=== PATIENT | female | born 1990 | race African-American/Black ===

== ENCOUNTER 2019-11-05 11:28 | Outpatient (CLI) | payer OTHER, SELFPAY ==
--- NOTE | ~2019-11-05 | MMUS_ITS ---
EXAMINATION: MM diagnostic hussein BI w libby, US breast RT limited HISTORY: Palpable right breast mass TECHNIQUE: Additional 3-D tomosynthesis images of were performed and synthetic 2-D images were genera paris. CAD analysis was submitted and interpreted. High resolution right breast ultrasound was performe d. COMPARISON: None FINDINGS: MAMMOGRAPHIC FINDINGS: The breasts are heterogenously dense, which may obscure small masses. There is a 1.4 cm spiculated ma ss in the upper inner quadrant of the right breast. There is a benign bright radiolucent nodule in th e lower inner quadrant of the left breast, most likely benign intramammary lymph node. There are no s uspicious calcifications, masses or architectural distortion in the left breast to suggest malignancy . ULTRASOUND: Left breast ultrasound: At 2:00, 6 cm from the nipple there is an irregular shaped hypoechoic mass with angular margins, mixe d posterior attenuation measuring 1.5 x 1.2 x 1.2 cm. No significant internal vascularity. IMPRESSION: 1. Irregular shaped hypoechoic mass of the right breast at 2:00, 6 cm from the nipple, corresponding to the mammographic finding. 2. Ultrasound-guided right breast biopsy recommended. BI-RADS category 5, highly suggestive of malignancy. Reviewed, dictated and finalized at location A. IMPRESSION: 1. Irregular shaped hypoechoic mass of the right breast at 2:00, 6 cm from the nipple, corresponding to the mammographic finding. 2. Ultrasound-guided right breast biopsy recommended. BI-RADS category 5, highly suggestive of malignancy.
== END 2019-11-05 11:29 | disposition home or self-care (01) ==
PROVIDERS: PCP Family Medicine; Visit Provider Obstetrics & Gynecology
DX: N63.12 Unspecified lump in the right breast, upper inner quadrant (principal)
CPT/HCPCS: 76642; 77062; 77066; G0279

== ENCOUNTER 2021-02-01 09:53 | Emergency (ER) | payer OTHER, SELFPAY ==
--- NOTE | ~2021-02-01 | US_ITS ---
EXAMINATION: US OB <= 14 weeks fetus DATE: 02/01/2021 12:35 INDICATION: Pelvic pain, cramping and bleeding with clots during first trimester . TECHNIQUE: Real-time pelvic ultrasound utilizing both a transvaginal and transabdominal probe was pe rformed. The interpreting radiologist was not present for the study. COMPARISON: None. FINDINGS: The uterus measures 4.6 x 5.9 x 6.4 cm. Multiple uterine fibroids, the largest measuring 7.8 cm in ma ximal diameter. There are couple smaller pedunculated fibroids with curvilinear hyperechoic and shado wing peripheral calcification which measure 5.6 cm, 3.4 cm and 3.6 cm in maximal diameters. The endom etrial complex measures 10 mm in thickness.No endometrial fluid or gestational sac identified. The ov nichelle are not visualized. IMPRESSION: 1. No intrauterine gestational sac which could be due to early, failed or ectopic . Recommen d correlation with serial beta-hCG levels with follow-up ultrasound as clinically indicated. 2. Fibroid uterus including a few pedunculated fibroids which partially obscure the adnexal regions w ith bilateral ovaries not visualized.. Reviewed, dictated and finalized at location A. IMPRESSION: 1. No intrauterine gestational sac which could be due to early, failed or ectop ic . Recommend correlation with serial beta-hCG levels with follow-up ultrasound as clinically indicated. 2. Fibroid uterus including a few pedunculated fibroids which partially obscure the adnexal regions with bilateral ovaries not visualized..
[2021-02-01 10:09] VITALS: BP 123/94; PULSE 90; RESP 18; TEMP 36.3; O2SAT 99
[2021-02-01 11:59] VITALS: BP 118/73; PULSE 80
[2021-02-01 12:00] VITALS: BP 126/84; PULSE 91
[2021-02-01 12:02] VITALS: BP 113/77; PULSE 95
--- NOTE | 2021-02-01 12:39 | ED.FALL ---
HPI - Fall General Chief Complaint: Vaginal Bleeding Stated Complaint: Vag bleed Time Seen by Provider: 02/01/21 10:55 Source: patient and RN notes reviewed Mode of arrival: ambulatory Limitations: no limitations History of Present Illness HPI Narrative: Patient a 30-year-old female who presents to emergency department for evaluation of having continued vaginal bleeding and passing tissue this morning and clots patient began having bleeding over the last several days was seen at an outside hospital had an ultrasound performed and blood work was discharged home she was traveling back arrived last night and then this morning had the increasing bleeding in tissue patient is followed by Dr. Olvera. Patient notes minimal cramping and notes that the bleeding has began to subside she is and denies any other complaints did take Tylenol this morning for pain Related Data Home Medications Medication Instructions Recorded Confirmed No Home Medications 12/30/20 12/30/20 Allergies Allergy/AdvReac Type Severity Reaction Status Date / Time strawberry AdvReac Intermediate Hives Verified 02/01/21 10:15 Review of Systems Review of Systems: All systems reviewed & are unremarkable except as noted in HPI and below PMFSH Past Medical History Medical History Adult BMI 34.0-34.9 kg/sq m Cancer of left hand bones delivery delivered Surgical History Surgical History History of lumpectomy Family History Family History Father No problems noted. Mother No problems noted. Sibling No problems noted. 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 HEAD: Normocephalic, atraumatic. EYES: PERRLA and EOMI. ENT: Nares clear, no rhinorrhea or epistaxis. Mucous membranes moist. CHEST: Clear to auscultation. No respiratory distress. No wheezes rales or rhonchi HEART: Regular rate and rhythm. No murmur heard. Normal peripheral pulses. ABDOMEN: Soft, nontender, nondistended EXTREMITIES: Normal range of motion. No edema. SKIN: Warm, dry, no rash. NEURO: No focal deficits. Alert and oriented x3. Cranial nerves II through XII grossly intact PSYCH: Normal mood and affect. Course Course Emergency Course: Patient in the room at this time aware of case findings treatment plan diagnosis discussion with mercantile reporter will follow up accordingly hemodynamically stable given bleeding precautions and felt appropriate for outpatient reevaluation Consultations Consultation #1: Discussed case with Dr. Olvera who will follow the patient on Tuesday for repeat beta quant testing Date: 02/01/21 Time: 13:11 Vital Signs Vital signs: Vital Signs Temperature 97.3 F L 02/01/21 10:09 Pulse Rate 90 02/01/21 10:09 Respiratory Rate 18 02/01/21 10:09 Blood Pressure 123/94 H 02/01/21 10:09 Pulse Oximetry 99 02/01/21 10:09 Temperature 97.3 F L 02/01/21 10:09 Pulse Rate 95 02/01/21 12:02 Respiratory Rate 18 02/01/21 10:09 Blood Pressure 113/77 02/01/21 12:02 Pulse Oximetry 99 02/01/21 10:09 MDM - Fall Lab Data Result diagrams: 02/01/21 12:40 Labs: Lab Results 02/01/21 02/01/21 Range/Units 12:40 12:40 WBC 13.3 H (4.5-10.0) K/mm3 RBC 4.52 (4.2-5.4) M/mm3 Hgb 12.3 (12.0-15.0) g/dL Hct 37.3 (37.0-47.0) % MCV 82.5 (80-100) fl MCH 27.2 (26-34) pg MCHC 33.0 (32-36) g/dl RDW 12.8 (1
[2021-02-01 12:49] LABS: Basophils Percent Auto 0.3 % (0.2-1.2); Eosinophils Absolute Auto 0.2 K/mm3 (0-0.3); Eosinophils Percent Auto 1.1 % (0-4.4); Hematocrit 37.3 % (37.0-47.0); Hemoglobin 12.3 g/dL (12.0-15.0); Immature Granulocyte Absolute 0.03 K/mm3 (0.00-0.031); Immature Granulocyte Percent A 0.2 % (0-0.5); Lymphocytes Absolute Auto 2.21 K/mm3 (0.9-3.2); Lymphocytes Percent Auto 16.6 % (18.3-44.2); Mean Corpuscular Hemoglobin 27.2 pg (26-34); Mean Corpuscular Volume 82.5 fl (80-100); Mean Platelet Volume 9.5 fl (7.4-10.4); Monocytes Absolute Auto 0.9 K/mm3 (0.1-0.6); Monocytes Percent Auto 6.8 % (2.6-8.5); Platelet Count Result 279 k/mm3 (150-375); Red Blood Count 4.52 M/mm3 (4.2-5.4); Red Cell Distribution Width 12.8 % (11.5-14.5); White Blood Count 13.3 K/mm3 (4.5-10.0)
[2021-02-01 13:48] VITALS: BP 123/70; PULSE 86; RESP 16; O2SAT 100
== END 2021-02-01 13:51 | disposition home or self-care (01) ==
PROVIDERS: Emergency Provider Emergency Medicine; PCP Family Medicine
DX: O03.9 Complete or unspecified spontaneous abortion without complication (principal); Z85.830 Personal history of malignant neoplasm of bone; Z77.22 Contact with and (suspected) exposure to environmental tobacco smoke (acute) (chronic); D25.9 Leiomyoma of uterus, unspecified
CPT/HCPCS: 36415; 76801; 84702; 85025; 99284

== ENCOUNTER 2021-07-13 13:04 | Emergency (ER) | payer OTHER, SELFPAY ==
[2021-07-13 13:12] VITALS: BP 127/75; PULSE 113; RESP 16; TEMP 36.8; O2SAT 100
--- NOTE | 2021-07-13 13:37 | ED.URI ---
HPI - URI/Sore Throat General Chief Complaint: Upper Respiratory Infection Stated Complaint: congestion/sob Time Seen by Provider: 07/13/21 13:41 Source: patient Mode of arrival: ambulatory Limitations: no limitations History of Present Illness HPI Narrative: 30-year-old female presenting for complaint of shortness of breath with exertion for 1 day. Worse with walking up stairs. She states her school nurse listened to her lungs and told her she had pulse ox of 86% and recommended she get a chest x-ray, however she states she also found out she was about a week ago. She currently denies shortness of breath, cough, sinus congestion, dizziness, fatigue, body aches, nausea, vomiting, diarrhea, fever or chills. Endorses sick contacts, son/ taking abx. Vacc covid Related Data Home Medications Medication Instructions Recorded Confirmed No Home Medications 12/30/20 12/30/20 Allergies Allergy/AdvReac Type Severity Reaction Status Date / Time strawberry AdvReac Intermediate Hives Verified 02/01/21 10:15 Review of Systems Review of Systems: CONSTITUTIONAL: Denies body aches, fever, chills, or sweats. EYES: Denies visual changes, redness, or discharge. ENT: Denies rhinorrhea, congestion, sore throat, or otalgia. CARDIOVASCULAR: Denies chest pain, palpitations, or edema. RESPIRATORY: Endorses shortness of breath with exertion. Denies cough GASTROINTESTINAL: Denies abdominal pain, nausea, vomiting, or diarrhea. GENITOURINARY: Denies dysuria or hematuria. SKIN: Denies rash, itching, or wounds. MUSCULOSKELETAL: Denies back pain, joint pain, or myalgia. NEUROLOGIC: Denies headache, numbness, tingling, or weakness. PSYCH: Denies depression or anxiety. [facility] Past Medical History Medical History Adult BMI 34.0-34.9 kg/sq m Cancer of left hand bones delivery delivered Surgical History Surgical History History of lumpectomy Family History Family History Father No problems noted. Mother No problems noted. Sibling No problems noted. 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 Please see nursing chart for further information. There is no relevant family history pertinent to the presenting complaint Exam Narrative: GENERAL: Well-appearing, well-nourished, and in no acute distress. HEAD: Normocephalic, atraumatic. EYES: EOMI. No redness or drainage. Conjunctivae normal. ENT: Mucous membranes pink and moist. No rhinorrhea. NECK: Normal AROM. Supple. CHEST: No respiratory distress. Clear to auscultation. HEART: Regular rate and rhythm. No murmur appreciated. Normal peripheral pulses. ABDOMEN: Soft, nontender, nondistended, normal active bowel sounds. MUSCULOSKELETAL: No bony tenderness. EXTREMITIES: Normal range of motion. No edema. SKIN: Warm, dry, no rash. Capillary refill normal. Normal skin turgor. NEURO: No focal deficits. Alert and oriented x3. Gait steady. PSYCH: Normal affect. No signs of depression or anxiety. Course Course Emergency Course: We discussed risk vs benefit of CXR during Pt will monitor sx and and pulse ox, and call pcp for f/u, she will go to ER for any cp, sob, palpitaitons, syncope. Patient is aware
== END 2021-07-13 14:07 | disposition home or self-care (01) ==
PROVIDERS: Emergency Provider Nurse Practitioner Family; PCP Family Medicine
DX: O90.89 Other complications of the puerperium, not elsewhere classified (principal); R06.00 Dyspnea, unspecified; Z85.830 Personal history of malignant neoplasm of bone
CPT/HCPCS: 99211; G0463

== ENCOUNTER 2021-07-28 15:20 | Outpatient (CLI) | payer OTHER, SELFPAY ==
--- NOTE | ~2021-07-28 | US_ITS ---
US OB <=14 wk fetus w TV DATE: 07/28/2021 16:03 INDICATION: Uncertain dates TECHNIQUE: Real-time imaging and Doppler analysis. Transabdominal and transvaginal approaches COMPARISON: 02/01/2021 obstetrical ultrasound FINDINGS: The uterus measures 12.8 cm height, 8.4 cm anteroposterior and 9.3 cm transverse dimension. Possible uterine fibroids are noted, the largest measuring 6.9 x 7.6 x 5.9 cm. Live aguirre intrauterine gestation. Yolk sac and pole are detected. heart rate of 175 bpm. Ramah-rump length averages 2.16 cm; estimated gestational age is 8 weeks 6 days +/- 6 days, with KAYLEE of 03/03/2022. Right ovary 4.1 x 2.3 x 2.7 cm, with 1.0 x 1.8 cm cyst Left ovary is not well demonstrated. No free pelvic fluid is noted. IMPRESSION: Estimated gestational age of 8 weeks 6 days +/- 6 days; KAYLEE: 03/03/2022 Reviewed, dictated and finalized at Location [facility]. Reviewed, dictated and finalized at location A. E MAKER ZINC IMPRESSION: Estimated gestational age of 8 weeks 6 days +/- 6 days; KAYLEE: 022
== END 2021-07-28 15:21 | disposition home or self-care (01) ==
PROVIDERS: PCP Family Medicine; Visit Provider Obstetrics & Gynecology Gynecology
DX: Z36.87 Encounter for antenatal screening for uncertain dates (principal); Z3A.08 8 weeks gestation of pregnancy
CPT/HCPCS: 76801; 76817

== ENCOUNTER 2021-10-07 16:21 | Outpatient (CLI) | payer OTHER, SELFPAY ==
--- NOTE | ~2021-10-07 | US_ITS ---
EXAMINATION: US OB /maternal detail DATE: 10/07/2021 17:08 INDICATION: anatomic survey. TECHNIQUE: Real-time ultrasound of the pelvis was performed. COMPARISON: Ultrasound 07/28/2021 FINDINGS: There are 7.7 cm, 3.8 cm, and 5.2 cm uterine fibroids. There is a single living fetus in vertex prese ntation. The placenta is posterior. heart rate is 151 beats per minute (bpm). The amniotic flu id volume is subjectively normal. The following biometric data were obtained: Biparietal diameter (BPD): 4.4 cm; head circumference (HC): 16.5 cm; abdominal circumference (AC): 15 .0 cm; femur length (FL): 3.3 cm. These measurements are concordant. Estimated weight is 337 g +/- 51 g, which correlates with the 97th percentile when 03/03/22 is u sed as estimated date of delivery. As single measurements, these parameters are each equal to the following estimated gestational ages: BPD: 19 weeks 2 days. HC: 19 weeks 2 days. AC: 20 weeks 2 days. FL: 20 weeks 3 days. estimated gestational age based solely on measurements from this exam is 19 weeks 6 days +/- 1 weeks 3 days. The cerebral ventricles, cerebellum, cisterna magna, nuchal fold, lip, and visualized portions of the spine are normal. The heart is normal. The diaphragm, stomach, kidneys, and bladder are normal. Ther e are two umbilical arteries to yield a 3-vessel cord. The cord insertion is normal. IMPRESSION: 1. Single living fetus in vertex presentation. 2. Large for gestational age. Estimated weight is 337 g +/- 51 g, which correlates with the 97 th percentile when 03/03/22 is used as estimated date of delivery. This date was set by ultrasound on 07/28/2021. 3. Normal anatomic survey. 4. Uterine fibroids. Reviewed, dictated and finalized at location A. IMPRESSION: 1. Single living fetus in vertex presentation. 2. Large for gestational age. Estimated weight is 337 g +/- 51 g, which correlates with the 97th percentile when 03/03/22 is used as estimated date of d elivery. This date was set by ultrasound on 07/28/2021. 3. Normal anatomic survey. 4. Uterine fibroids.
== END 2021-10-07 16:22 | disposition home or self-care (01) ==
PROVIDERS: PCP Family Medicine; Visit Provider Obstetrics & Gynecology Gynecology
DX: Z36.9 Encounter for antenatal screening, unspecified (principal); Z3A.19 19 weeks gestation of pregnancy
CPT/HCPCS: 76805

== ENCOUNTER 2021-11-04 16:17 | Outpatient (CLI) | payer OTHER, SELFPAY ==
--- NOTE | ~2021-11-04 | US_ITS ---
EXAMINATION: US OB follow up DATE: 11/04/2021 17:18 INDICATION: anatomic survey follow-up, second trimester TECHNIQUE: Real-time ultrasound of the pelvis was performed. The interpreting radiologist was not pre sent for the study. COMPARISON: 10/07/2021 FINDINGS: There is a single living fetus in transverse lie. The placenta is posterior and 4.3 cm from the internal cervical os. cardiac activity and movement are noted. heart rate is 1 42 beats per minute (bpm). The amniotic fluid index is subjectively normal. The spine appears n ormal. There is a 6.0 cm fibroid of the uterine fundus. Two adjacent fibroids are seen in the anterio r uterine body which measure 2.0 x 2.6 cm. There is a 4 cm intramural fibroid of the lower anterior u terus. The following biometric data were obtained: Biparietal diameter (BPD): 5.6 cm; head circumference (HC): 20.7 cm; abdominal circumference (AC): 17 .6 cm; femur length (FL): 4.2 cm. These measurements are concordant. Estimated weight is 550 g +/- 82 g, which correlates with the 40th percentile when 03/03/2022 is used as estimated date of delivery. As single measurements, these parameters are each equal to the following estimated gestational ages w ith ranges of +/- 2 standard deviations: BPD: 23 weeks 0 days +/- 1 weeks 5 days. HC: 22 weeks 6 days +/- 1 weeks 3 days. AC: 22 weeks 4 days +/- 2 weeks 0 days. FL: 23 weeks 4 days +/- 1 weeks 6 days. estimated gestational age based solely on measurements from this exam is 23 weeks 0 days +/- 1 weeks 4 days. IMPRESSION: 1. Single living fetus in transverse lie. 2. Normal-appearing spine. 3. Estimated weight is 550 g +/- 82 g, which correlates with the 40th percentile when 03/03/2022 is used as estimated date of delivery. Reviewed, dictated and finalized at location B. IMPRESSION: 1. Single living fetus in transverse lie. 2. Normal-appearing spine. 3. Estimated weight is 550 g +/- 82 g, which correlates with the 40th per centile when 03/03/2022 is used as estimated date of delivery.
== END 2021-11-04 16:18 | disposition home or self-care (01) ==
PROVIDERS: PCP Family Medicine; Visit Provider Obstetrics & Gynecology Gynecology
DX: Z36.9 Encounter for antenatal screening, unspecified (principal); Z3A.23 23 weeks gestation of pregnancy
CPT/HCPCS: 76816

== ENCOUNTER 2021-12-16 16:29 | Outpatient (CLI) | payer OTHER, SELFPAY ==
--- NOTE | ~2021-12-16 | US_ITS ---
EXAMINATION: US OB follow up DATE: 12/16/2021 17:11 INDICATION: Size greater than dates, fibroids TECHNIQUE: Real-time ultrasound of the pelvis was performed. COMPARISON: 11/04/2021. FINDINGS: There is a single living fetus in vertex presentation, longitudinal lie. The placenta is posterior an d lies within 2 cm of the cervix. heart rate is 151 beats per minute (bpm). cardiac acti vity and movement are noted. The amniotic fluid index is subjectively normal. Multiple uterine fibroids, the largest in the right fundus measuring up to 5.8 cm. 4 cm lower anterior uterine fibroid . 1.9 cm anterior uterine body fibroid. The following biometric data were obtained: Biparietal diameter (BPD): 7.6 cm; head circumference (HC): 25.8 cm; abdominal circumference (AC): 25 .7 cm; femur length (FL): 5.8 cm. Head circumference measures small, with overlapping ranges, possibly related to positioning/measureme nt error. Estimated weight is 1467 g +/- 220.1 g, which correlates with the 69th percentile when 2 is used as estimated date of delivery. As single measurements, these parameters are each equal to the following estimated gestational ages w ith ranges of +/- 2 standard deviations: BPD: 30 weeks 2 days +/- 3 weeks 1 days. HC: 28 weeks 0 days +/- 2 weeks 0 days. AC: 29 weeks 6 days +/- 2 weeks 1 days. FL: 30 weeks 2 days +/- 3 weeks 0 days. estimated gestational age based solely on measurements from this exam is 29 weeks 4 days +/- 2 weeks 1 days. IMPRESSION: 1. Single living fetus in vertex presentation. 2. Estimated weight is 1467 g +/- 220.1 g, which correlates with the 69th percentile when 2021 is used as estimated date of delivery. 3. Multiple stable uterine fibroids. 4. Low-lying placenta. Reviewed, dictated and finalized at location K. IMPRESSION: 1. Single living fetus in vertex presentation. 2. Estimated weight is 1467 g +/- 220.1 g, which correlates with the 69th percentile when 03/03/2022 is used as estimated date of delivery. 3. Multiple stable uterine fibroids. 4. Low-lying placenta.
== END 2021-12-16 16:30 | disposition home or self-care (01) ==
PROVIDERS: PCP Family Medicine; Visit Provider Obstetrics & Gynecology Gynecology
DX: O36.63X0 Maternal care for excessive fetal growth, third trimester, not applicable or unspecified (principal); D25.9 Leiomyoma of uterus, unspecified; O44.40 Low lying placenta NOS or without hemorrhage, unspecified trimester; Z3A.00 Weeks of gestation of pregnancy not specified
CPT/HCPCS: 76816

== ENCOUNTER 2022-01-26 09:43 | Outpatient (CLI) | payer OTHER, SELFPAY ==
--- NOTE | ~2022-01-26 | US_ITS ---
EXAMINATION: US OB follow up DATE: 01/26/2022 10:39 INDICATION: Suspected complication of the placenta during third trimester TECHNIQUE: Real-time ultrasound of the pelvis was performed. The interpreting radiologist was not pre sent for the study. COMPARISON: 12/16/2021 FINDINGS: There is a single living fetus in vertex presentation. The placenta is posterior and 4.2 cm from the internal cervical os. The cervical length is 4.0 cm. cardiac activity and movem ent are noted. heart rate is 143 beats per minute (bpm). The amniotic fluid index is subjective ly normal. Multiple stable appearing calcified uterine fibroids are noted, the largest of which measu res 6 cm. The following biometric data were obtained: Biparietal diameter (BPD): 8.8 cm; head circumference (HC): 31.2 cm; abdominal circumference (AC): 33 .0 cm; femur length (FL): 7.0 cm. These measurements are concordant. Estimated weight is 2913 g +/- 436 g, which correlates with the 86th percentile when 03/03/2022 is used as estimated date of delivery. As single measurements, these parameters are each equal to the following estimated gestational ages w ith ranges of +/- 2 standard deviations: BPD: 35 weeks 4 days +/- 3 weeks 1 days. HC: 35 weeks 0 days +/- 3 weeks 0 days. AC: 37 weeks 0 days +/- 3 weeks 0 days. FL: 36 weeks 1 days +/- 3 weeks 0 days. estimated gestational age based solely on measurements from this exam is 36 weeks 0 days +/- 2 weeks 4 days. IMPRESSION: 1. Single living fetus in vertex presentation. 2. Estimated weight is 2913 g +/- 436 g, which correlates with the 86th percentile when 03/03/20 22 is used as estimated date of delivery. 3. Multiple stable uterine fibroids. 4. Posterior placenta 4.2 cm from the internal cervical os. Reviewed, dictated and finalized at location B. IMPRESSION: 1. Single living fetus in vertex presentation. 2. Estimated weight is 2913 g +/- 436 g, which correlates with the 86th p ercentile when 03/03/2022 is used as estimated date of delivery. 3. Multiple stable uterine fibroids. 4. Posterior placenta 4.2 cm from the internal cervical os.
== END 2022-01-26 09:44 | disposition home or self-care (01) ==
PROVIDERS: PCP Family Medicine; Visit Provider Obstetrics & Gynecology Gynecology
DX: Z03.72 Encounter for suspected placental problem ruled out (principal); Z3A.36 36 weeks gestation of pregnancy
CPT/HCPCS: 76816

== ENCOUNTER 2022-02-20 19:29 | Inpatient (IN) | payer OTHER, SELFPAY ==
--- NOTE | 2022-02-12 15:58 | PC.NURSE ---
Verified with OR schedule and patient--C/S with tubal ligation on 02/25/22 at 0730 Patient given requisition for lab draw on 02/24/22
[2022-02-20] VITALS (32 sets, daily range): BP systolic 90–128; BP diastolic 58–78; PULSE 81–125; RESP 16; TEMP 36.5–36.8; O2SAT 95–100; BMI 35.9
[2022-02-20] MEDS: LACTATED RINGERS 1,000 ML 999 ML IV CONT (19:45)
--- OUTSIDE RECORDS SUMMARY | 2022-02-20 20:12 | XMS_ITS | Referral Summary ---
:1990 Author Organization [facility] Address [facility] [address] [address]- Encounter 01/30/21 - 01/30/21 [facility] [address] [facility] [place] [id number] Encounter Diagnosis Vaginal bleeding (Discharge Diagnosis) - 01/30/21 (Discharge Diagnosis) - 01/30/21 Bacteriuria (Discharge Diagnosis) - 01/30/21 Discharge Disposition: 01-Home or Self Care Attending Physician: Pippa Manning MD Admitting Physician: Pippa Manning MD Vital Signs Most recent to oldest [Reference Range]: 1 Temperature Oral [35.8-37.3 degC] 36.7 degC (01/30/21 11:31 AM) Peripheral Pulse Rate [60-100 bpm] 84 bpm (01/30/21 5:24 PM) Respiratory Rate [14-20 br/min] 20 br/min (01/30/21 5:24 PM) Blood Pressure [90-140/60-90 mmHg] 119/61 mmHg (01/30/21 5:24 PM) SpO2 98 % (01/30/21 5:24 PM) Problem List Condition Effective Dates Status Health Status Informant Breast cancer(Confirmed) Active pat ient Allergies, Adverse Reactions, Alerts No Known Medication Allergies Medications Macrobid 100 mg oral capsule 100 mg 1 caps, Oral, BID, X 7 days, # 14 caps, 0 Refill(s), Pharmacy: [id number], 1 caps Oral BID,x7 days Start Date: 01/30/21 Stop Date: 02/06/21 Status: Ordered Results Most recent to oldest [Reference Range]: 1 WBC [4.0-11.0 K/uL ] 10.3 K/uL (7/30/21 12:32 PM) RBC [3.80-5.20 M/ul ] 4.61 M/ul (01/30/21 12:32 PM) BUN [7-19 mg/dL] 5 mg/dL *LOW* (01/30/21 12:32 PM) UA Color [Yellow] Yellow
--- NOTE | 2022-02-20 20:33 | PM.IMHP ---
H&P: HPI History of Present Illness Date/Time: 02/20/22 20:33 Chief Complaint: Intrauterine at 38 2/7 wks here with spontaneous rupture of membranes. Patient has a planned repeat section and in addition has requested sterilization with tubal ligation. Plan is to proceed with and tubal. The patient is aware of the tubal ligation is a sterilizing permanent procedure. Risk of tubal failure with increased ectopic has been reviewed. has been complicated by fibroids however the has had good growth. labs O positive, rubella nonimmune, RPR negative, hepatitis-B surface antigen negative, HIV negative, group B strep negative. 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 Status post chemo and radiation Surgical History Surgical History (Updated 02/20/22 @ 20:41 by Kena Finn MD) History of History of lumpectomy Family History Family History (Updated 02/12/22 @ 15:38 by Shonda Carlson RN) Father No problems noted. Mother No problems noted. Sibling No problems noted. 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 Gender identity (if verbalized by the patient): Female Spiritual care concerns: No Meds Home Medications and Allergies Home Medications Medication Instructions Recorded Confirmed Type vitamins no.170-iron 1 tablet PO DAILY 07/15/21 08/05/21 History fumarate 27 mg-folic acid 1 mg tablet Allergies Allergy/AdvReac Type Severity Reaction Status Date / Time strawberry AdvReac Intermediate Hives Verified 02/12/22 15:37 Vital Signs Vital Signs - 24 hr 02/20/22 20:32 Pulse Rate 110 H Blood Pressure 127/77 Exam Const: General: healthy appearing and alert Orientation/consciousness: patient oriented x3 GI: GI Palp: Yes Soft to palpation, No Tenderness to palpation present (GI) and Yes Other GI palpation findings present ( gravid with a fundal height of 46cm; multiple fibroids palpable) : External Female Exam: normal external appearance Speculum Exam - Vagina: normal appearance of the vagina and normal vaginal discharge Bimanual Exam- Adnexa, other: normal adnexae and No adnexal tenderness Manual OB Exam: dilated 1 cm, effaced 0% and station high Amniotic Fluid: clear Neuro: General: patient oriented x3 Assessment and Plan Assessment and plan (1) 38 weeks gestation of : Code(s): Z3A.38 - 38 weeks gestation of Status: Acute (2) SROM (spontaneous rupture of membranes): Status: Acute Assessment and Plan: plan to proceed with repeat section (3) Encounter for sterilization: Code(s): Z30.2 - Encounter for sterilization Status: Acute Assessment and Plan: plan to proceed with tubal ligation (4) Fibroids: Code(s): D21.9 - Benign neoplasm of connective and other soft tissue, unspecified Status: Acute (5) History of : Code(s): Z98.891 - History of uterine scar from previous surgery Status: Acute
--- NOTE | 2022-02-20 20:38 | LDADM ---
This patient, Lurdes Corado, was admitted to Labor/Delivery/Recovery 119 on 02/20/22 at 19:29. Plans for labor, pain management and were discussed with patient. Patient/family oriented to hospital policies and general routines including ID bracelet, bed and alarms, visiting hours, pain management, procedures, bathroom and other care routines, personal items, smoking policy, room service/diet and guest tray routines, security routines, and visiting hours. Patient/Family are encouraged to report perceived risks to care and to ask questions if they do not understand what they are told or what they should do. See OBIX for further documentation.
[2022-02-20 20:40] LABS: Basophils Percent Auto 0.3 % (0.2-1.2); Eosinophils Absolute Auto 0.1 K/mm3 (0-0.3); Eosinophils Percent Auto 1.2 % (0-4.4); Hematocrit 34.9 % (37.0-47.0); Hemoglobin 11.5 g/dL (12.0-15.0); Immature Granulocyte Absolute 0.11 K/mm3 (0.00-0.031); Lymphocytes Absolute Auto 2.17 K/mm3 (0.9-3.2); Lymphocytes Percent Auto 19.2 % (18.3-44.2); Mean Corpuscular Hemoglobin 28.6 pg (26-34); Mean Corpuscular Volume 86.8 fl (80-100); Mean Platelet Volume 9.8 fl (7.4-10.4); Neutrophils Absolute Auto 7.8 K/mm3 (1.3-6.7); Neutrophils Percent Auto 69.3 % (45.5-73.1); Platelet Count Result 223 k/mm3 (150-375); Red Blood Count 4.02 M/mm3 (4.2-5.4); Red Cell Distribution Width 14.6 % (11.5-14.5); White Blood Count 11.3 K/mm3 (4.5-10.0)
--- NOTE | 2022-02-20 20:40 | WPDANESEPPF ---
Anes - Initial Pre Proc Eval Procedure: Operation Date: 02/20/22 21:00 Proposed Procedures p Section - Kena Finn MD Operation Date: 02/25/22 07:30 Proposed Procedures p Repeat Section with Bilateral Tubal Ligation - Kena Finn MD Date/Time: 02/20/22 20:40 Surgeon: Kena Finn MD Pre Op Diagnosis: IUP Pre Op Diagnosis: leaking Patient Data Age: 31 Gender: F Height: 1.63 m Weight: 95 kg Last Vital Signs Pulse 110 H 02/20/22 20:32 BP 127/77 02/20/22 20:32 Allergies Allergy/AdvReac Type Severity Reaction Status Date / Time strawberry AdvReac Intermediate Hives Verified 02/12/22 15:37 Home Medications Medication Instructions Recorded Confirmed Type vitamins no.170-iron 1 tablet PO DAILY 07/15/21 08/05/21 History fumarate 27 mg-folic acid 1 mg tablet Laboratory Tests 02/20/22 02/20/22 20:36 20:36 WBC 11.3 K/mm3 H K/mm3 (4.5-10.0) RBC 4.02 M/mm3 L M/mm3 (4.2-5.4) Hgb 11.5 g/dL L g/dL (12.0-15.0) Hct 34.9 % L % (37.0-47.0) MCV 86.8 fl fl (80-100) MCH 28.6 pg pg (26-34) MCHC 33.0 g/dl g/dl (32-36) RDW 14.6 % H % (11.5-14.5) Plt Count 223 k/mm3 k/mm3 (150-375) MPV 9.8 fl fl (7.4-10.4) Immature Gran % (Auto) 1.0 % H % (0-0.5) Neut % (Auto) 69.3 % % (45.5-73.1) Lymph % (Auto) 19.2 % % (18.3-44.2) [place] % (Auto) 9.0 % H % (2.6-8.5) Eos % (Auto) 1.2 % % (0-4.4) Baso % (Auto) 0.3 % % (0.2-1.2) Lymph # (Auto) 2.17 K/mm3 K/mm3 (0.9-3.2) [place] # (Auto) 1.0 K/mm3 H K/mm3 (0.1-0.6) Eos # (Auto) 0.1 K/mm3 K/mm3 (0-0.3) Baso # (Auto) 0.0 K/mm3 K/mm3 (0.0-0.1) Abs Immat Gran (auto) 0.11 K/mm3 H K/mm3 (0.00-0.031) Absolute Neuts (auto) 7.8 K/mm3 H K/mm3 (1.3-6.7) Absolute Nucleated RBC 0.0 K/mm3 K/mm3 (0.0-0.012) Nucleated RBC % 0.0 % % (0.0-0.2) RPR Pending Patient hx anesthesia problems: none Family hx anesthesia problems: none Results Review: All pre-operative results and documents have been reviewed as part of the pre-operative evaluation. 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 Status post chemo and radiation Surgical History Surgical History (Updated 02/20/22 @ 20:41 by Kena Finn MD) History of History of lumpectomy Family History Family History (Updated 02/12/22 @ 15:38 by Shonda Carlson RN) Father No problems noted. Mother No problems noted. Sibling No problems noted. 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 Informed Consent: The patient's anesthetic plan and its attendant risks and benefits were discussed with th
--- NOTE | 2022-02-20 22:20 | W.PM.PROC2 ---
Procedure Note - Detailed Date of Procedure 02/20/22 Pre-op Diagnosis intrauterine at 38 and 2/7 weeks with spontaneous rupture of membranes previous section fibroids request sterilization Post-op Diagnosis Same Procedure Performed repeat low transverse section and bilateral tubal ligation Surgeon Kena Finn MD Anesthesia Spinal Findings female 7lb 7oz with Apgars of 7 [id number] 9 [id number]; normal-appearing tubes; multiple fibroids palpable on the anterior surface of the serosa; The uterus is rotated to the patient's left and the right round ligament is visible at the right edge of the incision. There is increased vascularity of the lower uterine segment and bladder flap. Description of Procedure the patient was taken to the operating room and placed under anesthesia in the dorsal supine position with a leftward tilt. Once anesthesia was deemed adequate, a Pfannenstiel skin incision was made through the prior incision and carried down to the fascia which was nicked in the midline. The incision was extended laterally using Hernandez scissors. Ochsner was used to tent the fascia which was then dissected off using sharp and blunt dissection. The rectus muscles are in the midline and the peritoneum entered with a Peon. The Carl O retractor is placed. The vesicouterine peritoneum was tented and entered with Metzenbaum scissors. The bladder flap was created digitally. The lower uterine segment was incised in a transverse fashion with the scalpel and extended laterally using blunt traction. Calcifications and scar tissue are noted at the anterior portion of the incision to the right. The infant's head was attempted to be delivered and initially not successful. The vacuum was placed and popped off. The right angle is extended superiorly using bandage scissors and a 2nd attempt at vacuum was also not successful. The incision was extended additionally with the bandage scissors and the head is able to be delivered. The was then fully delivered and the cord clamped and cut. Pitocin was immediately started.The was handed to the waiting nursery nurse and auto club safety program coordinator. Cord blood was taken for gases and lab.The placenta was removed using manual traction. The bleeding vessels at the incision site are grasped with Allis clamps. The uterine incision was closed using 0 Monocryl in a running locked fashion. Same suture was used to imbricate. The extended portion of the right angle had significant vessels requiring several additional [id number] sutures for hemostasis. The left angle required 1 additional suture of 0 Monocryl for hemostasis. The left tube is very difficult to visualize and the fimbriated and is grasped with a [place]. The tube was then able to be pulled down further into the visual field. The tube was crossclamped with a Z clamp and the portion of tube was excised. The pedicle was tied off using 0 Vicryl in a Jazz stitch. Good hemostasis is noted. The right tube was grasped with a [place] and the distal 2/3 cross clamped with a Z clamp and excised. The pedicles tied off using 0 Vicryl in a Jazz stitch with good hemostasis noted. The bladder flap was very vascular and required hemaderm and pressure for hemostasis. Two additional packets of hemaderm were placed over the entire incision and observe for 3 minutes. No additional bleeding was noted. The Carl retractor was gently removed. The fascia was closed using 0 Vicryl in a running fashion. Subcutaneous tissues were irrigated and made hemostatic using Bovie cautery. Skin incision was closed using 4-0 Vicryl in a subcuticular fashion. Sponge, needle, and instrument counts are correct per the OR staff. Patient was given Ancef prior to incision. Estimated Blood Loss 1,430 Drains Yes ( Morris catheter) Packing No Pathology Yes ( placenta and bilateral partial tubal segment) Complications O
--- NOTE | 2022-02-20 22:33 | PM.OBDSVD ---
DS: Admitting Diagnosis Discharge Date 02/23/22 Admitting Diagnosis intrauterine at 38 and 2/7 weeks with spontaneous rupture of membranes fibroid uterus request sterilization previous section DS: Discharge Diagnosis Discharge Diagnosis (1) Intraoperative hemorrhage: Code(s): T81.89XA - Other complications of procedures, not elsewhere classified, initial encounter Status: Acute (2) delivery delivered: Code(s): O82 - Encounter for delivery without indication Status: Acute (3) Fibroids: Code(s): D21.9 - Benign neoplasm of connective and other soft tissue, unspecified Status: Acute (4) SROM (spontaneous rupture of membranes): Status: Acute (5) Encounter for sterilization: Code(s): Z30.2 - Encounter for sterilization Status: Acute (6) History of : Code(s): Z98.891 - History of uterine scar from previous surgery Status: Acute (7) 38 weeks gestation of : Code(s): Z3A.38 - 38 weeks gestation of Status: Acute OB - DS: Summary OB Procedures : NST and Ultrasound OB Procedures Intrapartum: low cervical, transverse and Tubal ligation OB Procedures: : None Peripartum Data Infant Delivery Method: Section Procedures: Procedures Operation Date: 02/20/22 21:00 <No data on this case meets the specified criteria> Operation Date: 02/25/22 07:30 <No data on this case meets the specified criteria> complications: other ( uterine incisional hemorrhage with estimated blood loss of 1,430 CC) Status at Discharge Functional status at discharge: independent ambulation Overall status at discharge: patient is progressing back to baseline Time Spent with Patient Time attestation: Total time spent providing and/or coordinating discharge services: DS: Data Data Completed and Pending Labs on day of discharge: Labs from last 24 hours 02/20/22 02/20/22 20:36 20:36 WBC 11.3 H RBC 4.02 L Hgb 11.5 L Hct 34.9 L MCV 86.8 MCH 28.6 MCHC 33.0 RDW 14.6 H Plt Count 223 MPV 9.8 Immature Gran % (Auto) 1.0 H Neut % (Auto) 69.3 Lymph % (Auto) 19.2 [place] % (Auto) 9.0 H Eos % (Auto) 1.2 Baso % (Auto) 0.3 Lymph # (Auto) 2.17 [place] # (Auto) 1.0 H Eos # (Auto) 0.1 Baso # (Auto) 0.0 Abs Immat Gran (auto) 0.11 H Absolute Neuts (auto) 7.8 H Absolute Nucleated RBC 0.0 Nucleated RBC % 0.0 RPR Pending Discharge Plan Discharge Attending physician on discharge: Kena Finn Discharging Clinician: Kena Finn Anticipated Discharge Date/Time: 02/23/22 22:36 Patient Disposition: Home, Self-Care Activity: may shower, may drive after 2 weeks and pelvic rest Diet: regular Wound Care Instructions: incision open to air Patient Instructions: Antibiotic Form Stand Alone Forms: General Discharge Information Follow-up/Referrals: Kena Finn MD [Physician] - 1 Week ( and 6 week) Discharge Medications: New hydrocodone-acetaminophen 5-325 mg Tablet 1 tablet PO Q3H PRN (Reason: Moderate Pain (4-6)) Qty: 20 0RF polysaccharide iron complex 150 mg iron Capsule 150 mg PO BIDWM Qty: 60 1RF docusate sodium 100 mg Capsule 100 mg PO BID Qty: 60 1RF Continued PNV no.170-iron fum-folic acid 27 mg iron- 1 mg tablet 1 tablet PO DAILY Date of admission: 02/20/22 19:29 Primary Care Provider: Chago Castellanos Admitting Provider: Kena Finn Attending physician on admission: Kena Finn Condition: Stable
[2022-02-20] MEDS: TRANEXAMIC ACID 1,000 MG/10 ML AMPUL 1000 MG IV PUSH (22:40)
[2022-02-20] MEDS: fentaNYL CITRATE INJ (*CRX) 100 MCG/2 ML VIAL 25 MCG IV PUSH (22:59)
[2022-02-21] VITALS (53 sets, daily range): BP systolic 100–123; BP diastolic 48–99; PULSE 82–167; RESP 14–18; TEMP 36.7–37.5; O2SAT 89–100
[2022-02-21] MEDS: LACTATED RINGERS 1,000 ML 125 ML IV CONT (00:30)
[2022-02-21] MEDS: LORATADINE 10 MG TABLET PO (02:13)
--- NOTE | 2022-02-21 03:39 | PC.NURSE ---
Late entry 2116: Kiwi vacuum applied by Dr. Danielle in the OR. Pop off #1. 2117: Kiwi vacuum applied by Dr. danielle in the OR. Pop off #2.
[2022-02-21] MEDS: diphenhydrAMINE HCl CAP 25 MG CAPSULE (05:30)
[2022-02-21 06:09] LABS: Basophils Percent Auto 0.2 % (0.2-1.2); Eosinophils Absolute Auto 0.1 K/mm3 (0-0.3); Eosinophils Percent Auto 0.4 % (0-4.4); Hematocrit 26.3 % (37.0-47.0); Hemoglobin 8.7 g/dL (12.0-15.0); Immature Granulocyte Absolute 0.13 K/mm3 (0.00-0.031); Immature Granulocyte Percent A 0.8 % (0-0.5); Lymphocytes Absolute Auto 2.22 K/mm3 (0.9-3.2); Lymphocytes Percent Auto 13.2 % (18.3-44.2); Mean Corpuscular HGB Conc 33.1 g/dl (32-36); Mean Corpuscular Hemoglobin 28.7 pg (26-34); Mean Corpuscular Volume 86.8 fl (80-100); Mean Platelet Volume 9.9 fl (7.4-10.4); Monocytes Absolute Auto 1.3 K/mm3 (0.1-0.6); Monocytes Percent Auto 7.8 % (2.6-8.5); Neutrophils Absolute Auto 13.1 K/mm3 (1.3-6.7); Neutrophils Percent Auto 77.6 % (45.5-73.1); Platelet Count Result 201 k/mm3 (150-375); Red Blood Count 3.03 M/mm3 (4.2-5.4); Red Cell Distribution Width 14.7 % (11.5-14.5); White Blood Count 16.9 K/mm3 (4.5-10.0)
[2022-02-21] MEDS: TRANEXAMIC ACID 1,000 MG/10 ML AMPUL 1000 MG IV PUSH (07:05)
[2022-02-21] MEDS: ACETAMINOPHEN 325 MG TABLET 650 MG PO (08:23)
--- NOTE | 2022-02-21 08:51 | PM.OBPNVD ---
OB - PN: Subj Subjective Date/time seen: 02/21/22 08:51 Interval history: Notes increased cramping. Bleeding average baby status: doing well and nursing well OB - PN: Obj Data Labs CBC & Chem 7: 02/21/22 05:00 Labs: Laboratory Results - last 24 hr 02/20/22 02/20/22 02/21/22 20:36 20:36 05:00 WBC 11.3 H 16.9 H RBC 4.02 L 3.03 L Hgb 11.5 L 8.7 L Hct 34.9 L 26.3 L MCV 86.8 86.8 MCH 28.6 28.7 MCHC 33.0 33.1 RDW 14.6 H 14.7 H Plt Count 223 201 MPV 9.8 9.9 Immature Gran % (Auto) 1.0 H 0.8 H Neut % (Auto) 69.3 77.6 H Lymph % (Auto) 19.2 13.2 L [place] % (Auto) 9.0 H 7.8 Eos % (Auto) 1.2 0.4 Baso % (Auto) 0.3 0.2 Lymph # (Auto) 2.17 2.22 [place] # (Auto) 1.0 H 1.3 H Eos # (Auto) 0.1 0.1 Baso # (Auto) 0.0 0.0 Abs Immat Gran (auto) 0.11 H 0.13 H Absolute Neuts (auto) 7.8 H 13.1 H Absolute Nucleated RBC 0.0 0.0 Nucleated RBC % 0.0 0.0 Blood Type O Positive Antibody Screen Negative OB - PN A/P Plan day: 1 Comments: Doing well overnight. Will dc TXA and transfer to second floor. Time Spent With Patient Time: Total time spent is greater than 50% in coordination of care (as documented) at patient's floor/unit and/or counseling patient: Exam Narrative: fundus firm nt inc-bandage c/d/i
[2022-02-21] MEDS: HYDROcodone/acetaminophen (*CRX) 10-325 MG TABLET 1 TAB PO ×3 (10:35→22:24)
[2022-02-21] MEDS: POLYSACCHARIDE IRON COMPLEX 150 MG CAPSULE PO (10:36)
[2022-02-21] MEDS: KCL 20 MEQ/D5/0.45% SOD CHL 1,000 ML 125 ML IV CONT (10:37)
[2022-02-21] MEDS: SIMETHICONE 80 MG TAB.CHEW PO ×4 (10:51→22:24)
--- NOTE | 2022-02-21 10:59 | PC.NURSE ---
Patient transferred to post room #290 via wheelchair. Support person present. Oriented to unit, room, information board, rooming in, admission packet and security measures. Patient verbalizes understanding.
--- NOTE | 2022-02-21 11:18 | WPDANLDPN2 ---
Anes-Prog Note L&D Date/Time: 02/21/22 11:18 Comfortable throughout: section Neuraxial method: spinal Epidural/Spinal procedure site: clean & non-tender Neuro status: Neuro function grossly intact. Cardiovascular status: normal Respiratory status: normal Airway patency: baseline Mental status: baseline Post-Op hydration status: normal Vital Signs: Last Vital Signs Temp 36.7 C 02/21/22 10:40 Pulse 97 02/21/22 10:40 Resp 16 02/21/22 10:40 BP 110/66 02/21/22 10:40 Pulse Ox 99 02/21/22 10:40 O2 Del Method Room Air 02/21/22 00:30 Pain score (VAS): 07/13 I/O: Intake & Output 02/20/22 02/21/22 02/21/22 23:59 07:59 15:59 Intake Total 1380 Output Total 1430 100 600 Balance -1430 -100 780 Post-procedural complaints: none Patient feedback: Patient satisfied with anesthetic care.
--- NOTE | 2022-02-21 11:18 | WPDANLDNPN2 ---
Anes-Prog Note L&D-Neuraxial Date/Time: 02/21/22 11:18 Neuraxial medications: intrathecal PF morphine Opiod-related complaints: none Patient feedback: Patient satisfied with post-operative pain management.
[2022-02-21] MEDS: diphenhydrAMINE HCl CAP 25 MG CAPSULE PO (12:29)
[2022-02-21] MEDS: LANOLIN (LANSINOH) 7.5 GM CREAM 1 APPLIC TOPICAL (12:35)
[2022-02-21] MEDS: DOCUSATE SODIUM 100 MG CAPSULE PO (15:13)
[2022-02-21] MEDS: HYDROcodone/acetaminophen (*CRX) 5-325 MG TABLET 1 TAB PO (18:48)
[2022-02-22] MEDS: HYDROcodone/acetaminophen (*CRX) 10-325 MG TABLET 1 TAB PO (02:43)
[2022-02-22] MEDS: HYDROcodone/acetaminophen (*CRX) 5-325 MG TABLET 1 TAB PO ×4 (05:13→19:32)
[2022-02-22] MEDS: SIMETHICONE 80 MG TAB.CHEW PO ×2 (05:13→08:52)
[2022-02-22 07:35] VITALS: BP 104/50; PULSE 115; RESP 18; TEMP 36.8; O2SAT 98
[2022-02-22 08:01] LABS: Rapid Plasma Reagin Non-Reactive (NonReactive)
[2022-02-22] MEDS: POLYSACCHARIDE IRON COMPLEX 150 MG CAPSULE PO ×2 (08:51→16:24)
[2022-02-22] MEDS: MULTIVIT/MIN/PREN/FOL AC/IRON TABLET 1 TAB PO (08:52)
[2022-02-22] MEDS: DOCUSATE SODIUM 100 MG CAPSULE PO ×2 (08:52→16:24)
[2022-02-22] MEDS: LORATADINE 10 MG TABLET PO (08:52)
--- NOTE | 2022-02-22 09:34 | PC.NURSE ---
[id number] Introductions were made, then consulted with patient to assess needs related to . Mother led the conversation with the pain she is having right now. She is not sure if it is incisional pain or gas pain. Called primary RN for pain medication and offered assistance with an ice pack, position change, splinting, breathing techniques, and tips for her support person to assist. Resources provided for inpatient and outpatient services using a resource guide and mom/baby guide. Father of baby voiced they will call if there is a request for assistance. Primary RN present in the room at this time.
--- NOTE | 2022-02-22 10:40 | P.PNOB_ITS ---
OB - PN: Subj Subjective Date/time seen: 02/22/22 10:40 Interval history: Notes increased cramping. Bleeding average Patient comments: no complaints and pain well controlled [place] baby status: doing well OB - PN: Obj Data Labs CBC & Chem 7: 02/21/22 05:00 Labs: Laboratory Results - last 24 hr 02/20/22 20:36 RPR Non-reactive OB - PN A/P Plan day: 2 Plan: routine care Time Spent With Patient Time: Total time spent is greater than 50% in coordination of care (as documented) at patient's floor/unit and/or counseling patient: Exam : Bimanual exam- vagina & uterus: other (Uterus firm, nt @U)
[2022-02-22] MEDS: IBUPROFEN 600 MG TABLET PO ×2 (12:50→19:32)
--- NOTE | 2022-02-22 14:28 | PC.NURSE ---
[id number] Consulted with patient to assess needs related to . Mother led conversation with her experience with feeding baby so far. Mother works well with her with encouragement. Reviewed working with , breast, nipples and how to protect the nipples with an optimal deep latch, good positioning, and good hand washing. Encouraged understanding the benefits of skin to skin, responding to feeding cues, frequencies of feeding 8-12 times in 24 hours (approximately 2-3 hours), duration of feedings, milk production, intake/output feeding sheet and signs of adequate intake encouraging swallowing at the breast. Reviewed positioning and alignment, supporting breast, off-centered (asymmetrical latch) and leading with the chin with big open wide gape. latched optimally to the left breast in a modified football position. Education given to mother of how to visualize suck/swallow ratios and drinking at the breast. Infant was able to maintain latch without discomfort to mother. Nipple care reviewed with optimal latch and good positioning. Discussed how her blood loss, prior breast surgery, and medications might effect the milk production and how to protect the milk supply. Reviewed supply and demand and resources used to facilitate learning were used from the mom and baby guide. Mother voiced understanding of the education shared, calling for assistance if the infant does not latch or if there is discomfort with . Reported to the primary RN.
[2022-02-22 19:00] VITALS: BP 115/73; PULSE 115; RESP 18; TEMP 36.8
[2022-02-23] MEDS: HYDROcodone/acetaminophen (*CRX) 10-325 MG TABLET 1 TAB PO (00:04)
[2022-02-23] MEDS: HYDROcodone/acetaminophen (*CRX) 5-325 MG TABLET 1 TAB PO ×2 (04:48→09:30)
[2022-02-23] MEDS: IBUPROFEN 600 MG TABLET PO (04:51)
--- NOTE | 2022-02-23 07:40 | PM.OBPNVD ---
OB - PN: Subj Subjective Date/time seen: 02/23/22 07:40 Patient comments: no complaints and pain well controlled baby status: doing well OB - PN: Obj Data Labs CBC & Chem 7: 02/21/22 05:00 Labs: Laboratory Results - last 24 hr 02/20/22 20:36 RPR Non-reactive OB - PN A/P Plan day: 3 Plan: discharge home Time Spent With Patient Time: Total time spent is greater than 50% in coordination of care (as documented) at patient's floor/unit and/or counseling patient: Exam Narrative: inc c/d/i : Bimanual exam- vagina & uterus: other (Uterus firm, nt @U)
[2022-02-23 08:25] VITALS: BP 107/67; PULSE 103; RESP 16; TEMP 36.4; O2SAT 100
[2022-02-23] MEDS: SIMETHICONE 80 MG TAB.CHEW PO (09:32)
[2022-02-23] MEDS: MULTIVIT/MIN/PREN/FOL AC/IRON TABLET 1 TAB PO (09:32)
[2022-02-23] MEDS: POLYSACCHARIDE IRON COMPLEX 150 MG CAPSULE PO (09:32)
[2022-02-23] MEDS: DOCUSATE SODIUM 100 MG CAPSULE PO (09:32)
[2022-02-23] MEDS: MEASLES,MUMPS,RUBELLA VACCINE 0.5 ML VIAL SUB-Q (09:34)
--- NOTE | 2022-02-23 16:23 | PC.NURSE ---
[id number] Consulted with patient to assess needs related to . Mother led conversation with her experience with feeding baby so far. Her left breast is firm and filled with mother concerned with engorgement. The right breast has had surgery in the past and is not full like the left breast. Reviewed treatment of engorgement with demonstration and how to prevent it in the future. Mother works well with her infant with encouragement after demonstrating good positioning. Reviewed working with infant, breast, nipples and how to protect the nipples with an optimal deep latch, good positioning, and good hand washing. Encouraged understanding the benefits of skin to skin, responding to feeding cues, frequencies of feeding 8-12 times in 24 hours (approximately 2-3 hours), duration of feedings, milk production, intake/output feeding sheet and signs of adequate intake encouraging swallowing at the breast. Reviewed positioning and alignment, supporting breast, off-centered (asymmetrical latch) and leading with the chin with big open wide gape. Infant latched optimally to the left breast in football position. Education given to mother of how to visualize suck/swallow ratios and drinking at the breast. was able to maintain latch but mother states her nipple has discomfort and she is unable to tell if it is tender or painful. Reviewed detaching infant from the breast and nipple was not misshaped. burped and there's milk around the nipple. Nipple care reviewed with optimal latch and good positioning. Infant reattached to the left breast after feeding cues were visualized and latched effectively to breastfeed. Infant detached after a quality feeding with good suck/swallows visualized and heard, then burped. Infant is awake, hands relaxed, and infant responds to fathers voice. Resources used to facilitate learning were used from the visual handout/ tool/mom and baby guide. Mother voiced understanding of the education shared, calling for assistance if the infant does not latch or if there is discomfort with .
--- NOTE | 2022-02-23 16:31 | PC.NURSE ---
1345 Mother is feeding appropriately for growth of and understands stimulating to eat if needed. Infant has had appropriate feedings in the last 24 hours meets the outcomes for weight, output and jaundice at this time. Mother states she is confident to continue effectively breastfeed and/or pump if her infant doesn't latch and effective breastfeed at home or when to call for assistance. Reviewed earlier discussion regarding the right breast with previous surgery and how that might effect the milk supply, pumping, , keeping the breast drained to prevent infection or cessation of the milk supply. Discussed her QBL and the possibility of delayed lactogenesis. Reinforced understanding of milk production, transition of milk, signs of adequate intake, prevention/relief of engorgement, responsive after visualizing feeding cues, the different methods of stimulating to breastfeed 2-3 hours after the start of the last feeding, community resources, medication information reviewed per [facility] and when to call a provider using the resource of the mom and baby guide/[facility] website. Mother voiced understanding of the education shared.
--- NOTE | 2022-02-23 18:42 | PC.NURSE ---
1400 Patient viewed the discharge video Mother & Baby Care, The First Two Weeks . Patient was given the opportunity and encouraged to ask questions. Patient verbalized understanding of information shared and has been given the mother/baby guide for home reference.
[2022-02-24 10:30] VITALS: BP 130/69; PULSE 98; RESP 18; TEMP 36.8; O2SAT 100
== END 2022-02-23 15:36 | disposition home or self-care (01) | DRG 785 ==
LOC: ANHLDR 22:37 → ANHOBPP 02-21 05:31 → ANHOB2 02-21 10:55
PROVIDERS: Admitting Provider Obstetrics & Gynecology Gynecology; PCP Family Medicine; Visit Provider Obstetrics & Gynecology Gynecology
PROC: 10D00Z1 Extraction of Products of Conception, Low, Open Approach (ICD-10-PCS; CPT 59514; principal; 2022-02-20 21:00)
DX: O34.13 Maternal care for benign tumor of corpus uteri, third trimester (principal); D25.9 Leiomyoma of uterus, unspecified; O67.8 Other intrapartum hemorrhage; Z3A.38 38 weeks gestation of pregnancy; Z37.0 Single live birth; O34.219 Maternal care for unspecified type scar from previous cesarean delivery; Z85.3 Personal history of malignant neoplasm of breast; Z85.831 Personal history of malignant neoplasm of soft tissue; Z30.2 Encounter for sterilization
CPT/HCPCS: 36415; 85025; 86592; 86850; 86900; 86901; 88302; 88307; 90710; A9270; J0131; J2175; J2274; J3010; J3480; J7120

== ENCOUNTER → 2023-01-14 11:45 | Outpatient (CLI) | payer OTHER, SELFPAY ==
--- NOTE | ~2023-01-14 | US_ITS ---
EXAMINATION: US soft tissue head and neck DATE: 01/14/2023 12:07 INDICATION: Left neck mass. TECHNIQUE: Multiple grayscale and Doppler ultrasound images of the left neck were obtained. COMPARISON: None FINDINGS: In the left neck, there is a 5 mm hypoechoic subcutaneous mass. IMPRESSION: 1. 5 mm subcutaneous mass in the patient's area of concern in left neck, which may be a sebaceous cys t. Reviewed, dictated and finalized at location E. IMPRESSION: 1. 5 mm subcutaneous mass in the patient's area of concern in left neck, which may be a sebaceous cyst.
== END ==
PROVIDERS: PCP Family Medicine; Visit Provider Nurse Practitioner Family
DX: R22.1 Localized swelling, mass and lump, neck (principal)
CPT/HCPCS: 76536

== ENCOUNTER 2024-03-26 11:04 | Emergency (ER) | payer OTHER, SELFPAY ==
--- NOTE | ~2024-03-26 | CT_ITS ---
EXAMINATION: CT abdomen pelvis w con DATE: 03/26/2024 14:44 INDICATION: Right lower quadrant abdominal pain. TECHNIQUE: Computed tomography (CT) of the abdomen and pelvis was performed with 100 mL Omnipaque 350 intravenous contrast. Automated exposure control and iterative reconstruction technique were employe d. The dose-length product was 686.66 mGy-cm. COMPARISON: None. FINDINGS: The visualized portions of the lung bases demonstrate mild atelectasis. No pleural effusion . The heart size is normal. No pericardial effusion. There is a small sliding hiatal hernia. The live r, gallbladder, spleen, pancreas, adrenal glands, and kidneys are normal. There are no dilated loops of bowel. The appendix is normal. There are multiple fibroids in the uterus measuring up to 6.1 cm. T here are no pathologically enlarged lymph nodes. There is physiologic fluid in the pelvis. There is s evere lower lumbar spondylosis. IMPRESSION: 1. Uterine fibroids. 2. Small sliding hiatal hernia. Reviewed, dictated and finalized at location A.
[2024-03-26 11:09] VITALS: BP 130/65; PULSE 84; RESP 19; TEMP 36.3; O2SAT 100
--- NOTE | 2024-03-26 12:55 | ED.NAVMDI ---
HPI - Nausea/Vomiting/Diarrhea General Chief complaint: Nausea/Vomiting/Diarrhea Stated complaint: bloody diarrhea Time Seen by Provider: 03/26/24 12:02 Source: patient Mode of arrival: ambulatory Limitations: no limitations History of Present Illness HPI Narrative: This is a 33-year-old female, with history of breast cancer, presents to the emergency department with lower abdominal pain and bright red blood in stool for the past day. The patient states yesterday, she ate her reheated pasta with chicken and developed nausea that progressed to diarrhea with bright red blood. She denies bleeding from elsewhere. Just complains of moderate, cramping right lower abdominal pain. She has no other complaints at this time. 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 Status post chemo and radiation delivery delivered Encounter for sterilization History of anemia Rash Right shoulder strain Routine history and physical examination of adult Screening for diabetes mellitus Screening for lipid disorders Screening for thyroid disorder SROM (spontaneous rupture of membranes) Surgical History Surgical History History of History of lumpectomy Family History Family History Father CHF (congestive heart failure) Mother No problems noted. Sibling Diabetes mellitus Grandparent Diabetes mellitus Family history of malignant neoplasm Cerebrovascular accident Son Autism Social History Social History Smoking status: Never smoker Second hand tobacco smoke exposure: No Alcohol intake: current Substance use: never Substance use type: does not use Lack of Transportation: No Lack of Food: Never True Current Housing: I Have Housing Concerned About Future Housing: No Difficulty Paying Gas/Electric Bills: No Difficulty Paying for Meds: No Currently Unemployed: No Education: Master's Degree or Higher Difficulty w/ Childcare or Family Care: No Living arrangements: with family Occupation/Education: occupation 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 HEAD: Normocephalic, atraumatic. EYES: PERRLA and EOMI. CHEST: Clear to auscultation. No respiratory distress. No wheezes rales or rhonchi HEART: Regular rate and rhythm. No murmur heard. Normal peripheral pulses. ABDOMEN: Soft, tender palpation the right lower quadrant, without rebound or guarding, nondistended, normal active bowel sounds. RECTAL: (chaperoned by female fire protection equipment technician Nola) external hemorrhoid is noted at the 11 o'clock position without active bleeding. There is no palpable mass colectomy exam. There is no noted blood on exam EXTREMITIES: Well-healing surgical amputation of the right 5th digit. Normal range of motion. No edema. SKIN: Warm, dry, no rash. NEURO: Alert and oriented x3. No focal deficit. Moving all 4 limbs spontaneously PSYCH: Normal mood and affect. Course Course Emergency Course: 15:20 - CBC demonstrates hemoglobin of 10.5, up from 9.6 in Ju
--- NOTE | 2024-03-26 13:35 | PC.NURSE ---
PATIENT STATES THAT THEY TYPICALLY HAVE TO USE ULTRASOUND TO GET IV OR LABS. THIS RN ATTEMPTED TO OBTAIN ACCESS WITH NO SUCCESS, PATIENT REQUESTED ULTRASOUND BE USED TO PLACE IV. DIMITRIS RN WITH VASCULAR ACCESS CALLED AND WILL BE COMING TO PLACE A LINE AND OBTAIN LABS.
[2024-03-26] MEDS: SODIUM CHLORIDE 0.9% IV 1,000 ML 999 ML IV CONT (14:00)
[2024-03-26 14:01] LABS: Basophils Percent Auto 0.3 % (0.2-1.2); Eosinophils Absolute Auto 0.3 K/mm3 (0-0.3); Eosinophils Percent Auto 3.8 % (0-4.4); Hemoglobin 10.5 g/dL (12.0-15.0); Immature Granulocyte Absolute 0.03 K/mm3 (0.00-0.031); Immature Granulocyte Percent A 0.3 % (0-0.5); Lymphocytes Percent Auto 22.5 % (18.3-44.2); Mean Corpuscular HGB Conc 31.8 g/dl (32-36); Mean Corpuscular Hemoglobin 26.8 pg (26-34); Mean Corpuscular Volume 84.2 fl (80-100); Mean Platelet Volume 9.2 fl (7.4-10.4); Monocytes Absolute Auto 0.5 K/mm3 (0.1-0.6); Monocytes Percent Auto 5.7 % (2.6-8.5); Neutrophils Percent Auto 67.4 % (45.5-73.1); Platelet Count Result 264 k/mm3 (150-375); Red Blood Count 3.92 M/mm3 (4.2-5.4); Red Cell Distribution Width 14.1 % (11.5-14.5); White Blood Count 8.9 K/mm3 (4.5-10.0)
[2024-03-26 14:13] LABS: Alanine Aminotransferase 20 U/L (6-35); Alkaline Phosphatase 79 U/L (38-126); Anion Gap 6 mmol/L (4-12); Aspartate Amino Transferase 24 U/L (14-36); Bilirubin,Total 0.3 mg/dL (0.2-1.3); Blood Urea Nitrogen 6 mg/dL (7-17); Calcium 9.1 mg/dL (8.4-10.2); Carbon Dioxide 27 mmol/L (22-30); Chloride 104 mmol/L (98-107); Estimated CRCL calculation 116 ml/min; Estimated Glomerular Filt Rate > 60; Glucose 88 mg/dL (65-110); Lipase 34 U/L (23-300); Potassium 3.8 mmol/L (3.4-5.0); Sodium 137 mmol/L (137-145)
[2024-03-26 14:23] LABS: Add Urine Microscopic? NO; Appearance Urine Clear (Clear); Bilirubin Urine Negative (Negative); Blood Urine Negative (Negative); Color Urine Yellow (Yellow); Glucose Urine UA Negative (Negative); Ketones Urine Negative (Negative); Leukocyte Esterase Ur Negative LEU/UL (Negative); Nitrate Urine Negative (Negative); Pregnancy On Board Control Positive; Protein Urine Negative (Negative); Specific Grav Ur 1.005 (1.001-1.035); Urine Pregnancy Test Negative; Urobilinogen Urine 0.2 mg/dL (<2.0)
[2024-03-26 14:38] LABS: INR 1.1
== END 2024-03-26 15:48 | disposition home or self-care (01) ==
PROVIDERS: Emergency Provider Preventive Medicine Aerospace Medicine; PCP Family Medicine
DX: K62.5 Hemorrhage of anus and rectum (principal); K64.4 Residual hemorrhoidal skin tags; D50.8 Other iron deficiency anemias; Z85.3 Personal history of malignant neoplasm of breast; Z85.830 Personal history of malignant neoplasm of bone
CPT/HCPCS: 36415; 74177; 80053; 81003; 81025; 83690; 85025; 85610; 96360; 99284; J7030; Q9967

== ENCOUNTER 2024-07-05 16:01 | Outpatient (CLI) | payer OTHER, SELFPAY ==
--- NOTE | ~2024-07-05 | US_ITS ---
EXAM: PELVIC ULTRASOUND HISTORY: ABN uterine bleeding . 3 para 2. COMPARISON: Reference is made to multiple prior OB ultrasound examinations performed most recently in January of 2022 and dating back to October of 2017. Reference is also made to the CT examination of the abdomen and pelvis dated 03/26/2024 FINDINGS: UTERUS: 13.7 x 6 x 9.7 cm. The uterus is anteverted and anteflexed. The endometrial complex measures 5.6 mm. Redemonstration of multiple calcified fibroids within the uterus, initially detected on OB ultrasound dated 10/10/2017. The largest is within the subserosal space to the left of midline measuring 6.4 x 6.5 x 6.1 cm. RIGHT OVARY: The right ovary is unremarkable in echogenicity and size measuring 2.1 x 1.8 x 2.9 cm. Arterial and venous flow are identified. LEFT OVARY: Despite prolonged interrogation, the left ovary was not visualized The left adnexa is sonographically unremarkable on the submitted images. No free fluid is identified within the pelvis. IMPRESSION: Multiple calcified fibroids within the uterus, dating back to October 2017, as detailed above. Unremarkable right ovary. Nonvisualization of the left ovary. Reviewed, dictated and finalized at location A. MIXING OPERATOR IMPRESSION: Multiple calcified fibroids within the uterus, dating back to October 2017, as de tailed above. Unremarkable right ovary. Nonvisualization of the left ovary.
== END 2024-07-05 16:02 | disposition home or self-care (01) ==
LOC: MICIMG 16:01
PROVIDERS: PCP Family Medicine; Visit Provider Obstetrics & Gynecology Gynecology
DX: D25.2 Subserosal leiomyoma of uterus (principal)
CPT/HCPCS: 76856

== ENCOUNTER 2025-03-16 13:42 | Outpatient (CLI) | payer OTHER, SELFPAY ==
--- OUTSIDE RECORDS SUMMARY | 2025-03-16 13:44 | XMS_ITS ---
Author Organization [facility] Address [facility] [place] [address] Care Team Providers Care Analytic Programmer Name Role Phone Chago Castellanos MD Primary Care Provider + [phone] Greg Sheffield MD Unavailable Danae Mccord MD Unavailable [phone] Vee Snowden PhD Unavailable [phone] Tien Brooks MD Unavailable [phone] Active Problems Problem Noted Date Diagnosed Date Malignant neoplasm of right female breast 2022 High risk medication use 07/27/2021 Encounter for follow-up surveillance of breast c ancer 09/11/2020 Neutropenic fever 02/29/2020 Assessment & Plan (02/29/2020 2:56 PM CDT): Presenting with fever and tachycardia, mucositis, otherwise no other symptoms. Has mucositis and gingivitis so will cover with vanc for streptococcal species in additional to cefepime for GNR coverage. Also had a tooth chip off and some bilateral jaw swelling so will evaluate with CT neck to evaluate abscess. Patient with neutropenia pretty far out from chemotherapy so will go ahead and give a dose of G-CSF and consult oncology tomorrow. If not defervescing, could consider adding flagyl for anaerobic coverage. CXR and COVID-19 negative. - G-CSF - vancomycin/cefepime - f/u bcx, ucx - med onc consultation - CT neck with contrast (orbits to neck will include both upper/lower jaws) Anxiety 02/29/2020 Assessment & Plan (02/29/2020 2:54 PM CDT): Will give iv ativan while poor po intake. Sepsis 02/29/2020 Assessment & Plan (02/29/2020 2:54 PM CDT): As in neutropenic fever. Leukopenia, tachycardia, fever. Mucositis 02/29/2020 Assessment & Plan (02/29/2020 2:54 PM CDT): Likely from chemotherapy. Magic mouth wash, oral care - neck ct as noted elsewhere Persons encountering health services in other specified circumstances 12/12/2019 Malignant neoplasm of upper- inner quadrant of right breast in female, estrogen receptor negative 11/20/2019 Cancer Staging:Clinical:Stage IIB(cT2, cN0, cM0, G3, ER-, VT-, HER2-) - Signed by Chandrakant Draper MD on 07/02/2020 Pathologic:No Stage Recommended(ypT0, pN0(sn), cM0, G3, ER-, VT-, HER2-) - Signed by Chandrakant Draper MD on 07/02/2020 Assessment & Plan (02/29/2020 2:48 PM CDT): On AC+T, last 02/01/2020. Unclear why the patient has such prolonged neutropenia, but should consider G-CSF. 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 Current Treatment and Therapy Plans No current plan information found. Past Treatment and Therapy Plans Line Care Plan Name Start Date Discontinue Date Treatment Medications Discontinue Reason Plan Provider IV MAINTENANCE THERAPY PLAN 12/29/2021 09/13/2023 No medications scheduled. Automatic discontinuation of dormant plans Norberto Jarrell MD Oncology Chemotherapy Treatment Plan Name Start Date Discontinue Date Treatment Medications Discontinue Reason Plan Provider Cycles Dose-Dense AC: DOXOrubicin (ADRIAMYCIN) / Cyclophosphamide followed by: PACLitaxel Weekly x 12 - Breast 12/14/19 20 05/25/2021 cycloPHOSphamide (CYTOXAN)cycloPHO Sphamide (CYTOXAN) IVPB (vial 20 mg/mL) ([id number])DOXOrubici n (ADRIAMYCIN)DOXOr ubicin (ADRIAMYCIN) 2 mg/mLPACLitaxel (TAXOL)PACLItaxel (TAXOL) IVPB in 250 mL Therapy Complete Abdiaziz Lopez MD PhD 8 of 8 cycles completed Oncology Treatment (2) Plan Name Start Date Discontinue Date Treatment Medications Discontinue Reason Plan Provider Cycles Goserelin Every 3 Months - Breast 12/14/2019 11/24/2021 goserelin (ZOLADEX) Therapy Complete Abdiaziz Lopez MD PhD 2 of 8 cycles started Radiation Treatments * Course C1 R BREAST 202007/30/2020 - 08/29/2020 Treatment Period Energy Fraction Dose Fractions Total Dose Plans Planned R BREAST [facility] 08/26/2020 - 08/29/2020 250 4 / 1,000 R BREAST 07/30/2020 - 08/25/2020 266 16 / 4,256 Reference Points Delivered [facility] DPV 08/26/2020 - 08/29/2020 1,000 PAUL DPV 07/30/2020 - 08/25/2020 4,256 Lifetime Dose Tracking * Chemical Lifetime Dose Automatic Entry Manual Entr y doxorubicin 237.932 mg/m2 (482.4 mg) 237.932 mg/m2 (482.4 mg) 0 mg/m2 (0 mg) Fluoro Time 1 minutes 1 minutes 0 minutes cyclophosphamide 2,379.325 mg/m2 (4,824 mg) 2,379.325 mg/m2 (4,824 mg) 0 mg/m2 (0 mg) doxorubicin isotoxic equivalent (Please manually verify calculation) 237.932 mg/m2 (482.4 mg) 237.932 mg/m2 (482.4 mg) 0 mg/m2 (0 mg) Air kerma at the reference point (Ka,r) 5.99 mGy 5.99 mGy 0 mGy DLP 1,767 mGycm 1,767 mGycm 0 mGycm Resolved Problems Problem Noted Date Diagnosed Date Resolved Date Breast mass, right 11/12/2019 4
--- OUTSIDE RECORDS SUMMARY | 2025-03-16 13:44 | XMS_ITS | Clinical Summary ---
Author Organization [facility] Address [address] [place] [address] Care Team Providers Care Supervisor Mold Construction Name Role Phone Chago Castellanos MD Primary Care Provider + [phone] Greg Sheffield MD Unavailable Danae Mccord MD Unavailable [phone] Vee Snowden PhD Unavailable [phone] Tien Brooks MD Unavailable [phone] Allergies Active Allergy Reactions Criticality Noted Date Comments Steele Itching,Rash Medium 1988 Medications acetaminophen (TYLENOL) 325 mg tablet Take 2 tablets (650 mg total) by mouth every 6 (six) hours as needed for pain Active ergocalciferol (VITAMIN D) 50,000 unit capsule Take 1 capsule (50,000 Units total) by mouth 03/06/2024 Active Active Problems Problem Noted Date Diagnosed Date [...] Cancer Staging:Clinical:Stage IIB(cT2, cN0, cM0, G3, ER-, HI-, HER2-) - Signed by Chandrakant Draper MD on 07/02/2020 Pathologic:No Stage Recommended(ypT0, pN0(sn), cM0, G3, ER-, HI-, HER2-) - Signed by Chandrakant Draper MD on 07/02/2020 Assessment & Plan (02/29/2020 2:48 PM CDT): On AC+T, last 02/01/2020. Unclear why the patient has such prolonged neutropenia, but should consider G-CSF. 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 Resolved Problems Problem Noted Date Diagnosed Date Resolved Date Breast mass, right 11/12/2019 4 Encounters Date Type Department Care Team Description 12/17/2024 9:12 AM CDT - 12/17/2024 11:59 PM CDT Hospital Encounter [facility] [address] [place] [address] Abnormal finding on breast imaging Discharge Disposition: Discharge to home or self care 12/17/2024 9:00 AM CDT - 12/17/2024 11:59 PM CDT Hospital Encounter [facility] [address] [place] [address] Abnormal finding on breast imaging Discharge Disposition: Discharge to home or self care 12/17/2024 Orders Only [facility] Medicine Surgery [address] [facility] Floor [address] [place] [id number] Sil White NP History of partial mastectomy, right (Primary Dx) from Last 3 Months Surgical History Surgery Date Site/Laterality Comments BIOPSY 07/04/2002 - 07/03/2003 neck and armpit BREAST BIOPSY 11/13/2019 Right SECTION, CLASSIC 2021 PORTACATH PLACEMENT 07/04/2002 - 07/03/2003 PORTACATH PLACEMENT 07/04/2019 - 07/03/2020 FINGER AMPUTATION 07/04/2002 - 07/03/2003 BREAST BIOPSY 07/17/2021 Right BREAST LUMPECTOMY 06/03/2020 - 07/03/2020 Right Medical History Medical History Date Comments 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, 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 Breast cancer (HCC) History of chemotherapy History of radiation therapy Breast mass, right 11/12/2019 Family History Medical History Relation Name Comments No Known Problems Brother No Known Problems Father Prostate cancer Maternal Grandfather No Known Problems Maternal Grandmother No Known Problems Mother No Known Problems Paternal Grandfather No Known Problems Paternal Grandmother No Known Problems Sister Anesthesia problems Neg Hx Breast cancer Neg Hx Ovarian cancer Neg Hx Relation Name Status Comments Brother Father Maternal Grandfather Maternal Grandmother Mother Paternal Grandfather Paternal Grandmother Sister Social History Tobacco Use Types Packs/Day Years Used Date Smoking Tobacco: Never Smokeless Tobacco: Never Tobacco Cessation:Counseling Given: Not Answered Alcohol Use Standard Drinks/Week Comments Not Currently 0 (1 standard drink = 0.6 oz pur e alcohol) AUDIT-C Answer Date Recorded Q1: How often do you have a drink containing alc ohol? Monthly or less 03/22/2023 Q2: How many drinks containi ng alcohol do you have on a typical day when you are drinking? 1 or 2 03/22/2023 Q3: How often do you have si x or more drinks on one occasion? Never 03/22/2023 Personal Safety Answer Date Recorded Have you ever been in or are you currently in a harmful physical or emotional relationship or is someone making you feel afraid or unsafe? Denies 04/04/2023 Comments No Sex and Gender Information Value Date Recorded Sex Assigned at Not on file Legal Sex Female 8:20 AM CDT Gender Identity Female 03/25/2021 6:36 AM CDT Sexual Orientation Straight 11/09/2019 3: 06 PM CDT Obstetrics History Para Term AB IAB SAB Ectopic Multiple Livin g Live Births 3 2 2 Date Outcome GA Total Labor Labor/2nd/3rd Weight Sex Type Anes PTL Violet A1 A5 Name Clin Term Term Last Filed Vital Signs Vital Sign Reading Time Taken Comments Blood Pressure 132/85 08/27/2024 8:37 AM SENIOR HARDWARE ENGINEER Pulse 86 08/27/2024 8:37 AM SENIOR HARDWARE ENGINEER Temperature 36.5 C (97.7 F) 08/27/2024 8:37 AM SENIOR HARDWARE ENGINEER Respiratory Rate 16 08/27/2024 8:37 AM SENIOR HARDWARE ENGINEER Oxygen Saturation 100% 08/27/2024 8:37 AM SENIOR HARDWARE ENGINEER Inhaled Oxygen Concentration - - Weight 86.2 kg (190 lb) 12/17/2024 9:25 AM CDT Height 162.6 cm (5' 4) 07/24/2024 11:01 AM SENIOR HARDWARE ENGINEER Body Mass Index 32.61 07/24/2024 11:01 AM SENIOR HARDWARE ENGINEER Plan of Treatment Health Maintenance Due Date Last Done Comments Cervical Cancer Screening 1988 Depression Screening 1988 Hepatitis C Screening 1988 DTaP/Tdap/Td Vaccine (1 - Tdap) 12/31/1999 Varicella Vaccines (1 of 2 - 13+ 2-dose series) 2001 Hepatitis B Screening 2006 Regular Well Visit/Exam 18-64 2006 Pneumococcal vaccine <65 (1 of 2 - PCV) 12/31/2007 Zoster Vaccine (1 of 2) 12/31/2007 HPV Vaccines (1 - 3-dose SCDM series) 12/31/2015 Influenza Vaccine (#1) 2025 Medical Devices Explanted Type Area Lock Technician Device Identifier Shelf Expiration Date Model / Serial / Lot [employer] [id number] Powerport Airguard 8fr 1 Lumen Attachable Catheter Intermediate Latex Free - S0 - [id number] Implanted:Qty: 1 on 11/28/2019 by Danae Mccord MD at [facility] Explanted:Qty: 1 on 04/04/2023 by Danae Mccord MD at [facility] Catheter Left: Subclavian [employer] 10/01/2020 [id number] / [id number] / [id number] Description:Disposed of per hospital policy Procedures Procedure Name Priority Date/Time Associated Diagnosis Comments US BREAST RIGHT LIMITED Schedule Routine, Read Routine (OP Routine) 12/17/2024 10:02 AM CDT Abnormal finding on breast imaging DIAGNOSTIC MAMMOGRAM RIGHT W GAUTAM Schedule Routine, Read Routine (OP Routine) 12/17/2024 9:46 AM CDT Abnormal finding on breast imaging from Last 3 Months Results * US Breast Right Limited (12/17/2024 10:02 AM CDT) Anatomical Region Laterality Modality Breast Right Ultrasound 12/17/2024 10:0 9 AM CDT Impressions 12/17/2024 10:32 AM CDT No suspicious mammographic or targeted ultrasound finding to correlate with the 12/05/2024 MRI findings. OVERALL FINAL ASSESSMENT: BI-RADS Category 2: Benign. RECOMMENDATION: As referenced on the previous MRI 12/05/2024, the patient should return in 6 months for follow-up MRI with and without contrast. Consider obtaining MRI on day 7-14 of the patient's menstrual cycle given the marked background parenchymal enhancement. Dr. Foster discussed the above findings and recommendations with the patient, who expressed her understanding of the management plan. The radiology attending physician has personally reviewed this study, and had reviewed and/or edited this written report and agrees with it. Electronically signed by: MD Loulou Holden 12/17/2024 10:32 AM CDT EXAMINATION: RIGHT UNILATERAL DIGITAL DIAGNOSTIC MAMMOGRAM AND DIGITAL BREAST TOMOSYNTHESIS; RIGHT BREAST SONOGRAM HISTORY: 33-year-old female with invasive mammary carcinoma status post right breast conservation therapy in 2019 with repeat biopsy showing fibroadenomatoid change, sclerotic intraductal papilloma (07/2021) and benign left breast biopsy (2019). The patient presents with MRI detected irregular area of enhancement within the upper outer right breast. COMPARISON: MRI 12/05/2024. Comparison is also made to mammograms dating back to 11/05/2019. TECHNIQUE: Full field digital mammographic views of the RIGHT breast were performed, including computer aided detection (CAD) and digital breast tomosynthesis (DBT). Directed ultrasound evaluation of the RIGHT breast was performed by a trained hedge fund manager and by Dr. Foster. BREAST PARENCHYMAL COMPOSITION: There are scattered areas of fibroglandular density. MAMMOGRAM FINDINGS: There is a question asymmetry in the upper outer right breast which appears similar to priors on spot compression views. There are post breast conservation therapy in the RIGHT breast. There is no new suspicious calcifications, mass, architectural distortion in the right breast. SONOGRAM FINDINGS: Corresponding to the asymmetry in the upper outer right breast, there is benign appearing dense fibroglandular tissue. us Sil White NP IMG MAMMO PROCEDURES Fi nal Result * Diagnostic Mammogram Right W Gautam (12/17/2024 9:46 AM CDT) Anatomical Region Laterality Modality Breast Right Mammography 12/17/2024 10:0 9 AM CDT Impressions 12/17/2024 10:32 AM CDT No suspicious mammographic or targeted ultrasound finding to correlate with the 12/05/2024 MRI findings. OVERALL FINAL ASSESSMENT: BI-RADS Category 2: Benign. RECOMMENDATION: As referenced on the previous MRI 12/05/2024, the patient should return in 6 months for follow-up MRI with and without contrast. Consider obtaining MRI on day 7-14 of the patient's menstrual cycle given the marked background parenchymal enhancement. Dr. Foster discussed the above findings and recommendations with the patient, who expressed her understanding of the management plan. The radiology attending physician has personally reviewed this study, and had reviewed and/or edited this written report and agrees with it. Electronically signed by: Issa Foster MD Narrative 12/17/2024 10:32 AM CDT EXAMINATION: RIGHT UNILATERAL DIGITAL DIAGNOSTIC MAMMOGRAM AND DIGITAL BREAST TOMOSYNTHESIS; RIGHT BREAST SONOGRAM HISTORY: 33-year-old female with invasive mammary carcinoma status post right breast conservation therapy in 2019 with repeat biopsy showing fibroadenomatoid change, sclerotic intraductal papilloma (07/2021) and benign left breast biopsy (2019). The patient presents with MRI detected irregular area of enhancement within the upper outer right breast. COMPARISON: MRI 12/05/2024. Comparison is also made to mammograms dating back to 11/05/2019. TECHNIQUE: Full field digital mammographic views of the RIGHT breast were performed, including computer aided detection (CAD) and digital breast tomosynthesis (DBT). Directed ultrasound evaluation of the RIGHT breast was performed by a trained hedge fund manager and by Dr. Foster. BREAST PARENCHYMAL COMPOSITION: There are scattered areas of fibroglandular density. MAMMOGRAM FINDINGS: There is a question asymmetry in the upper outer right breast which appears similar to priors on spot compression views. There are post breast conservation therapy in the RIGHT breast. There is no new suspicious calcifications, mass, architectural distortion in the right breast. SONOGRAM FINDINGS: Corresponding to the asymmetry in the upper outer right breast, there is benign appearing dense fibroglandular tissue. Sil White MAIL OFFICER IMG MAMMO PROCEDURES Fi nal Result from Last 3 Months [place] [address] [facility] Advance Directives For more information, please contact: [phone] * Full Code (Latest Code Status on File) Date Activated Date Inactivated Comments 02/29/2020 9:14 PM 03/03/2020 6:51 PM Care Teams Supervisor Mold Construction Relationship Specialty Start Date End Date Chago Castellanos MD PCP - General Family Medicine 11/05/19 Greg Sheffield MD [address] [place] [address] Radiation Oncologist Radiation Oncology 07/02/20 Danae Mccord MD [address] [place] [address] Surgeon Surgical Oncology 07/02/20 Vee Snowden, PhD [address] [place] [address] Nurse Practitioner Radiation Oncology 10/13/21 Tien Brooks MD [address] DIV IM MEDICAL ONCOLOGY, [address] [place] [address] Medical Oncologist/Paving Foreman Medical Oncology 10/13/21
--- OUTSIDE RECORDS SUMMARY | 2025-03-16 13:44 | XMS_ITS | Encounter Summary ---
Author Organization [facility] Healthcare Address [address] [place] [address] Care Team Providers Care Sweatband Decorating Machine Operator Name Role Phone Chago Castellanos MD Primary Care Provider + [phone] Greg Sheffield MD Unavailable Danea Mccord MD Unavailable [phone] Abdiaziz Lopez MD PhD Unavailable [phone] Vee Snowden PhD Unavailable [phone] Tien Brooks MD Unavailable [phone] Kiara Hernandez MD Unavailable [phone] Encounter Details Date Type Department Care Team (Late st Contact [facility]) Description 11/28/2019 Telephone [facility] [place] [id number] Any Johnson, RT Social History Tobacco Use Types Packs/Day Years Used Date Smoking Tobacco: Never Smokeless Tobacco: Never Alcohol Use Standard Drinks/Week Comments Not Currently 0 (1 standard drink = 0.6 oz pur e alcohol) Comments No Sex and Gender Information Value Date Recorded Sex Assigned at Not on file Legal Sex Female 8:20 AM CDT Gender Identity Female 03/25/2021 6:36 AM CDT Sexual Orientation Straight 11/09/2019 3: 06 PM CDT documented as of this encounter Plan of Treatment Not on file documented as of this encounter Visit Diagnoses Not on filedocumented in this encounter Additional Health Concerns Infection Onset Date Last Indicated Resolved Time COVID: Suspected 02/29/2020 02/29/2020 02/29/2020 11:33 AM CDT Respiratory Infection (RADHA), contact + droplet Comment:IP review-Patient classified as Low Risk for COVID-19 and has one negative COVID-19 test. Patient meets criteria for COVID-19 isolation discontinuation Angie Rey RN 02/29/2020 Automatically added due to negative COVID-19 result. 02/29/2020 02/29/2020 02/29/2020 3:52 PM C DT documented as of this encounter Care Teams Sweatband Decorating Machine Operator Relationship Specialty Start Date End Date Chago Castellanos MD PCP - General Family Medicine 11/05/19 Greg Sheffield MD [address] [place] [address] Radiation Oncologist Radiation Oncology 07/02/20 Danae Mccord MD [address] [place] [address] Surgeon Surgical Oncology 07/02/20 Abdiaziz Lopez MD PhD [address] [place] [address] Medical Oncologist Medical Oncology 07/02/20 05/24/21 Vee Snowden, PhD [address] [place] [address] Nurse Practitioner Radiation Oncology 10/13/21 Tien Brooks MD [address] DIV IM MEDICAL ONCOLOGY, [address] [place] [address] Medical Oncologist/Sleeping Car Conductor Medical Oncology 10/13/21 [place] [address] Refrigeration Engineer Obstetrics and Gynecology 11/12/19 12/28/22 documented as of this encounter
[2025-03-16 14:30] LABS: Hematocrit 30.3 % (37.0-47.0); Hemoglobin 9.8 g/dL (12.0-15.0)
== END 2025-03-16 13:43 | disposition home or self-care (01) ==
LOC: ANHLAB 13:43
PROVIDERS: PCP Family Medicine; Visit Provider Anesthesiology
DX: Z01.818 Encounter for other preprocedural examination (principal); D64.9 Anemia, unspecified
CPT/HCPCS: 36415; 85014; 85018

== ENCOUNTER 2025-03-25 02:03 | Day surgery (SDC) | payer OTHER, BC, SELFPAY ==
[2025-03-15 13:47] VITALS: BMI 32.3
--- NOTE | 2025-03-15 13:54 | PC.NURSE ---
Report to the Outpatient Waiting Room, entrance under the green pavilion located off [facility], at time _0700_ on date _[id number]_. Planned Procedure Time: _0900_.? Time changes happen often and if your time is changed the preop area will call you the afternoon before. - You and your visitor will be asked to self-screen and do not enter if you have any COVID symptoms. Please call surgeon if you need to reschedule. - A mask is optional within the hospital at this time. Patients may have clear liquids (water, carbonated beverages, clear teas, apple juice) until 3 hours prior to surgery with a maximum of 20 ounces. - No food from midnight until time of surgery and no smoking, or chewing tobacco (or any form of nicotine). No chewing gum, candy or mints. Take only the following medications with a SIP of water on the morning of surgery: __None___ DO NOT STOP ANY OF YOUR OTHER PRESCRIPTION MEDICATIONS PRIOR TO SURGERY EXCEPT THE FOLLOWING Hold all vitamins and supplements for 3 days per anesthesiologist. Medications to discontinue per physician Date to take last dose Please no make-up, nail canadian, hairspray, perfume, deodorant, or body powder the day of surgery.? No jewelry (including any body piercings) or valuables the day of surgery, leave them at home.? Please take a shower or bath the night before, or the morning of, surgery with an antibacterial soap.? Wear comfortable, loose fitting clothing.? - Jewelry must be removed prior to entering the operating room.? Rings and piercings that are not removed may be cut off. - The hospital will not accept responsibility for valuables.? - Please leave all valuables, including medications, at home the day of surgery. If you are going home after surgery, a licensed emergency detail driver must drive you home.? - NO public transportation without another adult if you receive anesthesia. - We recommend that an adult stay with you for 24 hours following discharge. - We also recommend that you do not drive, make important decision, drink alcoholic beverages, or take any drugs that were not prescribed by your health care provider for at least 24 hours after your discharge time. Follow any additional instructions given to you from your surgeon. Telephone instructions given to __[place]___and asked if any additional questions and then verbalized understanding. Patient advised to call surgeon office or pre surgery nurse liaison [phone] if any additional questions.
--- OUTSIDE RECORDS SUMMARY | 2025-03-25 02:06 | XMS_ITS | Encounter Summary ---
Author Organization [facility] Healthcare Address [address] [place] [address] Care Team Providers Care Audience Coordinator Name Role Phone Chago Castellanos MD Primary Care Provider + [phone] Greg Sheffield MD Unavailable Danae Mccord MD Unavailable [phone] Abdiaziz Lopez MD PhD Unavailable [phone] Vee Snowden PhD Unavailable [phone] Tien Brooks MD Unavailable [phone] Kiara Hernandez MD Unavailable [phone] Encounter Details Date Type Department Care Team (Late st Contact [facility]) Description 11/28/2019 Telephone [facility] [place] [phone] Any Johnson, RT Social History Tobacco Use [...] documented as of this encounter Care Teams Audience Coordinator Relationship Specialty Start Date End Date Chago Castellanos MD PCP - General Family Medicine 11/05/19 Greg Sheffield MD [address] [place] [address] Radiation Oncologist Radiation Oncology 07/02/20 Danae Mccord MD [address] [place] [address] Surgeon Surgical Oncology 07/02/20 Abdiaziz Lopez MD PhD [address] [place] [address] Medical Oncologist Medical Oncology 07/02/20 05/24/21 Vee Snowden, PhD [address] [place] [address] Nurse Practitioner Radiation Oncology 10/13/21 Tien Brooks MD [address] DIV IM MEDICAL ONCOLOGY, [address] [place] [address] Medical Oncologist/Climate Change Analyst Medical Oncology 10/13/21 [place] [address] Resource Development Manager Obstetrics and Gynecology 11/12/19 12/28/22 documented as of this encounter
--- OUTSIDE RECORDS SUMMARY | 2025-03-25 02:06 | XMS_ITS | Clinical Summary ---
Author Organization [facility] Address [address] [place] [address] Care Team Providers Care Flavoring Maker Name Role Phone Chago Castellanos MD Primary Care Provider + [phone] Greg Sheffield MD Unavailable Danae Mccord MD Unavailable [phone] Vee Snowden PhD Unavailable [phone] Tien Brooks MD Unavailable [phone] Allergies Active Allergy Reactions Criticality Noted Date Comments [place]wig Itching,Rash Medium 1988 Medications acetaminophen (TYLENOL) 325 [...] Cancer Staging:Clinical:Stage IIB(cT2, cN0, cM0, G3, ER-, TN-, HER2-) - Signed by Chandrakant Draper MD on 07/02/2020 Pathologic:No Stage Recommended(ypT0, pN0(sn), cM0, G3, ER-, TN-, HER2-) - Signed by Chandrakant Draper MD on 07/02/2020 Assessment & Plan (02/29/2020 2:48 PM CDT): On AC+T, last 02/01/2020. Unclear why the patient has such prolonged neutropenia, but should consider G-CSF. 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 Resolved Problems Problem Noted Date Diagnosed Date Resolved Date Breast mass, right 11/12/2019 4 Surgical History Surgery Date Site/Laterality Comments BIOPSY [...] Comments Blood Pressure 132/85 08/27/2024 8:37 AM LAW CLERK Pulse 86 08/27/2024 8:37 AM LAW CLERK Temperature 36.5 C (97.7 F) 08/27/2024 8:37 AM LAW CLERK Respiratory Rate 16 08/27/2024 8:37 AM LAW CLERK Oxygen Saturation 100% 08/27/2024 8:37 AM LAW CLERK Inhaled Oxygen Concentration - - Weight 86.2 kg (190 lb) 12/17/2024 9:25 AM CDT Height 162.6 cm (5' 4) 07/24/2024 11:01 AM LAW CLERK Body Mass Index 32.61 07/24/2024 11:01 AM LAW CLERK Plan of Treatment Health Maintenance Due Date [...] (#1) 2025 Medical Devices Explanted Type Area Pound Keeper Device Identifier Shelf Expiration Date Model / Serial / Lot [employer] [id number] Powerport Airguard 8fr 1 Lumen Attachable Catheter Intermediate Latex Free - S0 - [id number] Implanted:Qty: 1 on 11/28/2019 by Danae Mccord MD at [facility] Explanted:Qty: 1 on 04/04/2023 by Danae Mccord MD at [facility] Catheter Left: Subclavian [employer] 10/01/2020 [id number] / [id number] Description:Disposed of per hospital policy Insurance [facility] CHOICE PLUS [facility] [id number] [facility] CHOICE PLUS [facility] PL[facility] Advance Directives For more information, please contact: [phone] * Full Code (Latest Code Status on File) Date Activated Date Inactivated Comments 02/29/2020 9:14 PM 03/03/2020 6:51 PM Care Teams Flavoring Maker Relationship Specialty Start Date End Date Chago Castellanos MD PCP - General Family Medicine 11/05/19 Greg Sheffield MD [address] [place] [address] Radiation Oncologist Radiation Oncology 07/02/20 Danae Mccord MD [address] [place] [address] Surgeon Surgical Oncology 07/02/20 Vee Snowden, PhD [address] [place] [address] Nurse Practitioner Radiation Oncology 10/13/21 iTen Brooks MD [address] [facility] DIV IM MEDICAL ONCOLOGY, [address] [place] [address] Medical Oncologist/Knot Picker Cloth Medical Oncology 10/13/21
--- OUTSIDE RECORDS SUMMARY | 2025-03-25 02:06 | XMS_ITS ---
Author Organization [facility] Address [facility] [place] [address] Care Team Providers Care Filler Blender Name Role Phone Chago Castellanos MD Primary Care Provider + [phone] Greg Sheffield MD Unavailable Danae Mccord MD Unavailable [phone] Vee Snowden PhD Unavailable [phone] Tien Brooks MD Unavailable [phone] Active Problems Problem Noted Date Diagnosed Date [...] Cancer Staging:Clinical:Stage IIB(cT2, cN0, cM0, G3, ER-, MT-, HER2-) - Signed by Chandrakant Draper MD on 07/02/2020 Pathologic:No Stage Recommended(ypT0, pN0(sn), cM0, G3, ER-, MT-, HER2-) - Signed by Chandrakant Draper MD [...] Fractions Total Dose Plans Planned R BREAST [facility] 08/26/2020 - 08/29/2020 250 4 / 1,000 R BREAST 07/30/2020 - 08/25/2020 266 16 / 4,256 Reference Points Delivered [facility] DPV 08/26/2020 - 08/29/2020 1,000 PAUL DPV [...]
--- NOTE | 2025-03-25 07:27 | WPDHPUPDATE1 ---
History and Physical Update Update Date/Time: 03/25/25 07:27 History and Physical has been reviewed, including an updated exam of the patient. There are NO changes in the patient's condition. Risks, benefits, and alternatives have been discussed and questions answered. Patient agrees to proceed with procedure.
--- NOTE | 2025-03-25 07:27 | PM.HPGS ---
History of Present Illness History of Present Illness Consent: Risks, benefits, and alternatives have been discussed and questions answered. Patient agrees to proceed with procedure. Chief complaint: Menorrhagia Narrative: Lurdes Corado is a 34 year old female with heavy cycles. Patient through a pad a tampon every 1 to 2 hours. The patient has mild anemia. Last hemoglobin was 11. Patient with a known history uterine fibroids. It was recommended to undergo D&C hysteroscopy for further evaluation. Risks of infection, bleeding, perforation, and possible pathology are reviewed. Patient voices understanding and agrees to proceed. 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 Status post chemo and radiation Surgical History Surgical History (Updated 03/25/25 @ 07:31 by Kena Finn MD) History of amputation of finger of right hand Digit 5 2001 status post chemotherapy and radiation History of bilateral tubal ligation History of X2 History of lumpectomy Family History Family History Father CHF (congestive heart failure) Mother No problems noted. Sibling Diabetes mellitus Grandparent Diabetes mellitus Family history of malignant neoplasm Cerebrovascular accident Son Autism Social History Social History Smoking status: Never smoker Second hand tobacco smoke exposure: No Alcohol intake: current Substance use: never Substance use type: does not use Lack of Transportation: No Lack of Food: Never True Current Housing: I Have Housing Concerned About Future Housing: No Difficulty Paying Gas/Electric Bills: No Difficulty Paying for Meds: No Currently Unemployed: No Education: Master's Degree or Higher Difficulty w/ Childcare or Family Care: No Living arrangements: with family Occupation/Education: occupation 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[place] Gender identity (if verbalized by the patient): Female Spiritual care concerns: No Meds Home Medications and Allergies Home Medications ?Medication ?Instructions ?Recorded ?Confirmed ?Type cholecalciferol (vitamin D3) 1,250 1,250 mcg PO WEEKLY #8 caps 12/24/24 03/15/25 Rx mcg (50,000 unit) capsule ferrous sulfate 325 mg (65 mg 325 mg PO DAILY #90 tabs 12/24/24 03/15/25 Rx iron) tablet Allergies Allergy/AdvReac Type Severity Reaction Status Date / Time strawberry AdvReac Intermediate Hives Verified 03/15/25 13:45 Exam Const: General: healthy appearing and alert Orientation/consciousness: patient oriented x3 Resp: Effort & Inspection: normal respiratory effort GI: GI Palp: Yes Soft to palpation, No Tenderness to palpation present (GI) and Yes Palpable mass present (Uterus 16 week size) : External Female Exam: normal external appearance Speculum Exam - Vagina: normal appearance of the vagina and normal vaginal discharge Speculum Exam - Cervix: Other cervical findings present (Cervix pulled up into the left) Bimanual exam- vagina & uterus: enlarged (16 week size firm) Bimanual Exam- Adnexa, other: normal adnexae and No adnexal tenderness Neuro: General: patient oriented x3 Assessment and Plan Assessment and plan (1) Menorrhagia: Code(s): N92.0 - Excessive and frequent menstruation with regular cycle Status: Acute Assessment and Plan: Plan to proceed with D&C hysteroscopy (2) Fibroid uterus: Code(s): D25.9 - Leiomyoma of uterus, unspecified Status: Acute Assessment and Plan: Will proceed with hysteroscopic myomectomy if submucosal
[2025-03-25 08:00] VITALS: BP 129/72; PULSE 100; RESP 16; TEMP 36.1; O2SAT 100
[2025-03-25] MEDS: LACTATED RINGERS 1,000 ML 30 ML IV CONT (08:00)
--- NOTE | 2025-03-25 08:06 | P.PNAN_ITS ---
Anes - Initial Pre Proc Eval Procedure: Operation Date: 03/25/25 09:00 Proposed Procedures p Hysteroscopy Dilation and Curettage - Kena Finn MD Date/Time: 03/25/25 08:06 Surgeon: Kena Finn MD Pre Op Diagnosis: Menorrhagia Patient Data Age: 34 Gender: F Height: 1.63 m Weight: 85.5 kg Allergies Allergy/AdvReac Type Severity Reaction Status Date / Time strawberry AdvReac Intermediate Hives Verified 03/15/25 13:45 Home Medications ?Medication ?Instructions ?Recorded ?Confirmed ?Type cholecalciferol (vitamin D3) 1,250 1,250 mcg PO WEEKLY #8 caps 12/24/24 03/15/25 Rx mcg (50,000 unit) capsule ferrous sulfate 325 mg (65 mg 325 mg PO DAILY #90 tabs 12/24/24 03/15/25 Rx iron) tablet Patient hx anesthesia problems: none Family hx anesthesia problems: none Results Review: All pre-operative results and documents have been reviewed as part of the pre- operative evaluation. 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 Status post chemo and radiation Surgical History Surgical History History of amputation of finger of right hand Digit 5 2001 status post chemotherapy and radiation History of bilateral tubal ligation History of X2 History of lumpectomy Family History Family History Father CHF (congestive heart failure) Mother No problems noted. Sibling Diabetes mellitus Grandparent Diabetes mellitus Family history of malignant neoplasm Cerebrovascular accident Son Autism Social History Social History Smoking status: Never smoker Second hand tobacco smoke exposure: No Alcohol intake: current Substance use: never Substance use type: does not use Lack of Transportation: No Lack of Food: Never True Current Housing: I Have Housing Concerned About Future Housing: No Difficulty Paying Gas/Electric Bills: No Difficulty Paying for Meds: No Currently Unemployed: No Education: Master's Degree or Higher Difficulty w/ Childcare or Family Care: No Living arrangements: with family Occupation/Education: occupation 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 Informed Consent: The patient's anesthetic plan and its attendant risks and benefits were discussed with the patient/family/POA. Questions were solicited and answers provided to the satisfaction of the patient/family/POA.
[2025-03-25 08:45] LABS: BEDSIDEPREGUCG Negative (Negative)
--- NOTE | 2025-03-25 08:48 | S_PTH ---
PATIENT: Lurdes Corado LOC: [facility] U#:[id number] AGE/SX: 34/F ROOM: RE03/25/[address]: Kena Finn MD : 1990 BED: DIS: 03/25/2025 SPEC #: [id number] RECD: 03/25/25 10:19 STATUS: HUANG REJie #: [id number] MAYE: 03/25/25 08:[address]: Kena Finn DEPT: [facility] Surgical RECD BY: Jeannine Reese ENTERED: 03/25/25 10:19 SP TYPE: Surgical OTHR DR: Chago Castellanos MD Tissues: A - Endometrial Curettings Procedures: Hematoxylin and Eosin Stain Gross and Microscopic Level 4
[2025-03-25] MEDS: KETOROLAC 30 MG/ML VIAL (*BKC) IV PUSH (08:49)
--- NOTE | 2025-03-25 08:55 | W.PM.PROC2 ---
Procedure Note - Detailed Date of Procedure 03/25/25 Pre-op Diagnosis Menorrhagia Post-op Diagnosis Same Procedure Performed D&C hysteroscopy with resection of endocervical polyp Surgeon Kena Finn MD Anesthesia MAC Findings The uterus sounds to 12cm and the endometrium appears grossly normal without visible lesions. There is a large endocervical polyp noted. Description of Procedure The patient is taken to the operating room and placed under anesthesia in the dorsal lithotomy position. She was prepped and draped in the usual sterile fashion. [place] speculum was placed in the vagina and the cervix was grasped on the anterior lip with a tenaculum. Uterus sounded to 12cm. Due to the known history of fibroids the cervix was serially dilated to a 6 Hegar and the large Aveta hysteroscope was placed. With the above-stated findings the small resection device is opened and the polyp removed in its entirety. The hysteroscope was then removed. The sharp curette is used to curette the endometrium until a good uterine cry was noted in all areas. All instruments are removed. Sponge, needle, and instrument counts are correct per the OR staff. The patient was awakened from anesthesia and taken to recovery in stable condition. Estimated Blood Loss 5 Drains No Packing No Pathology Yes (Endometrial curettings and endocervical shavings) Complications No immediate complications Condition Stable Disposition PACU
[2025-03-25 08:56] VITALS: BP 121/73; PULSE 94; RESP 16; O2SAT 100
[2025-03-25 09:15] VITALS: BP 108/71; PULSE 79; RESP 16
[2025-03-25 09:45] VITALS: BP 116/68; PULSE 100; RESP 16
== END 2025-03-25 10:06 | disposition home or self-care (01) ==
PROVIDERS: PCP Family Medicine; Visit Provider Obstetrics & Gynecology Gynecology
PROC: 0U5B8ZZ Destruction of Endometrium, Via Natural or Artificial Opening Endoscopic (ICD-10-PCS; CPT 58563; principal; 2025-03-25 09:00)
DX: N84.0 Polyp of corpus uteri (principal); D64.9 Anemia, unspecified; E66.9 Obesity, unspecified; Z68.32 Body mass index [BMI] 32.0-32.9, adult; Z98.890 Other specified postprocedural states; Z98.51 Tubal ligation status; Z92.3 Personal history of irradiation; Z92.21 Personal history of antineoplastic chemotherapy; Z85.3 Personal history of malignant neoplasm of breast; Z85.830 Personal history of malignant neoplasm of bone; Z80.9 Family history of malignant neoplasm, unspecified; Z82.49 Family history of ischemic heart disease and other diseases of the circulatory system
CPT/HCPCS: 58558; 88305; J1885; J2003; J2250; J2405; J2704; J3010; J7120

== ENCOUNTER 2025-04-29 16:43 | Outpatient (CLI) | payer OTHER, BC, SELFPAY ==
--- OUTSIDE RECORDS SUMMARY | 2025-04-29 17:19 | XMS_ITS ---
Author Organization [facility] Address [facility] [place] [address] Care Team Providers Care Office Systems Technology Instructor Name Role Phone Chago Castellanos MD Primary Care Provider + [phone] Greg Sheffield MD Unavailable Danae Mccord MD Unavailable [phone] Vee Snowden PhD Unavailable [phone] Tien Brooks MD Unavailable [phone] Active Problems Problem Noted Date Diagnosed Date [...] Cancer Staging:Clinical:Stage IIB(cT2, cN0, cM0, G3, ER-, KS-, HER2-) - Signed by Chandrakant Draper MD on 07/02/2020 Pathologic:No Stage Recommended(ypT0, pN0(sn), cM0, G3, ER-, KS-, HER2-) - Signed by Chandrakant Draper MD [...] Fractions Total Dose Plans Planned R BREAST [facility] 08/26/2020 - 08/29/2020 250 4 / 1,000 R BREAST 07/30/2020 - 08/25/2020 266 16 / 4,256 Reference Points Delivered [facility] DPV 08/26/2020 - 08/29/2020 1,000 [...]
--- OUTSIDE RECORDS SUMMARY | 2025-04-29 17:19 | XMS_ITS | Clinical Summary ---
Author Organization [facility] Address [address] [place] [id number] Care Team Providers Care Civil Project Engineer Name Role Phone Chago Castellanos MD Primary Care Provider + [phone] Greg Sheffield MD Unavailable Danae Mccord MD Unavailable [phone] Vee Snowden PhD Unavailable [phone] Tien Brooks MD Unavailable [phone] Allergies Active Allergy Reactions Criticality Noted Date Comments [place] Itching,Rash Medium 1990 Medications acetaminophen (TYLENOL) 325 [...] Comments Blood Pressure 132/85 08/27/2024 8:37 AM FAST FOOD SERVICES MANAGER Pulse 86 08/27/2024 8:37 AM FAST FOOD SERVICES MANAGER Temperature 36.5 C (97.7 F) 08/27/2024 8:37 AM FAST FOOD SERVICES MANAGER Respiratory Rate 16 08/27/2024 8:37 AM FAST FOOD SERVICES MANAGER Oxygen Saturation 100% 08/27/2024 8:37 AM FAST FOOD SERVICES MANAGER Inhaled Oxygen Concentration - - Weight 86.2 kg (190 lb) 12/17/2024 9:25 AM CDT Height 162.6 cm (5' 4) 07/24/2024 11:01 AM FAST FOOD SERVICES MANAGER Body Mass Index 32.61 07/24/2024 11:01 AM FAST FOOD SERVICES MANAGER Plan of Treatment Health Maintenance Due Date [...] (#1) 2025 Medical Devices Explanted Type Area Spreader Box Operator Device Identifier Shelf Expiration Date Model / Serial / Lot [employer] [id number] Powerport Airguard 8fr 1 Lumen Attachable Catheter Intermediate Latex Free - S0 - [id number] Implanted:Qty: 1 on 11/28/2019 by Danae Mccord MD at [facility] Explanted:Qty: 1 on 04/04/2023 by Danae Mccord MD at [facility] Catheter Left: Subclavian [employer] 10/01/2020 [id number] / [id number] / [id number] Description:Disposed of per hospital policy Insurance [facility] CHOICE PLUS [facility] HMO/PPO Address: [address] [place] [address] [facility] H[facility]/PP[facility] Address: [address] [place] [address] [facility] [id number] [facility] CHOICE PLUS [facility] HMO/PPO Address: [address] [place] [address] [facility] CHOICE PLUS [facility] HMO/PPO Address: [facility] [address] [place] [address] Advance Directives For more information, please contact: [phone] * Full Code (Latest Code Status on File) Date Activated Date Inactivated Comments 02/29/2020 9:14 PM 03/03/2020 6:51 PM Care Teams Civil Project Engineer Relationship Specialty Start Date End Date Chago Castellanos MD PCP - General Family Medicine 11/05/19 Greg Sheffield MD [address] [place] [address] Radiation Oncologist Radiation Oncology 07/02/20 Danae Mccord MD [address] [place] [address] Surgeon Surgical Oncology 07/02/20 Vee Snowden, PhD [address] [place] [address] Nurse Practitioner Radiation Oncology 10/13/21 Tien Brooks MD [address] [facility] DIV IM MEDICAL ONCOLOGY, [address] [place] [address] Medical Oncologist/Rn Cardiology Medical Oncology 10/13/21
--- OUTSIDE RECORDS SUMMARY | 2025-04-29 17:19 | XMS_ITS | Encounter Summary ---
Author Organization [facility] Address [address] [place] [id number] Care Team Providers Care Editor House Organ Name Role Phone Chago Castellanos MD Primary Care Provider + [phone] Greg Sheffield MD Unavailable Danae Mccord MD Unavailable [phone] Abdiaziz Lopez MD PhD Unavailable [phone] Vee Snowden PhD Unavailable [phone] Tien Brooks MD Unavailable [phone] Kiara Hernandez MD Unavailable [phone] Encounter Details Date Type Department Care Team (Late st Contact [facility]) Description 11/28/2019 Telephone [facility] [place] [id number] Any Johnson, RT Social History Tobacco Use [...] documented as of this encounter Care Teams Editor House Organ Relationship Specialty Start Date End Date Chago Castellanos MD PCP - General Family Medicine 11/05/19 Greg Sheffield MD [address] [place] [address] Radiation Oncologist Radiation Oncology 07/02/20 Danae Mccord MD [address] [place] [address] Surgeon Surgical Oncology 07/02/20 Abdiaziz Lopez MD PhD [address] [place] [address] Medical Oncologist Medical Oncology 07/02/20 05/24/21 Vee Snowden, PhD [address] [place] [address] Nurse Practitioner Radiation Oncology 10/13/21 Tien Brooks MD [address] DIV IM MEDICAL ONCOLOGY, [address] [place] [address] Medical Oncologist/Aircraft Load Controller Medical Oncology 10/13/21 [place] [address] Sonography Technologist Obstetrics and Gynecology 11/12/19 12/28/22 documented as of this encounter
== END 2025-04-29 16:44 | disposition home or self-care (01) ==
LOC: ANHLAB 16:46
PROVIDERS: PCP Family Medicine; Visit Provider Obstetrics & Gynecology Gynecology
DX: E55.9 Vitamin D deficiency, unspecified (principal)
CPT/HCPCS: 36415; 82306